=== PATIENT | male | born 1955 | race Caucasian/White ===

== ENCOUNTER 2016-11-14 09:25 | Emergency (ER) | payer OTHER ==
[2016-11-14 09:39] VITALS: BMI 27.4
[2016-11-14 09:49] VITALS: TEMP 98.3
[2016-11-14] MEDS ORDERED: Sodium Chloride 0.9% 1,000 ML IV ONE (10:06)
[2016-11-14] MEDS ORDERED: Sodium Chloride 0.9% 1,000 ML ONE (10:20)
[2016-11-14 10:28] LABS: BASO # 0.1 K/uL (0.0-0.2); BASO % 0.9 % (0.0-2.0); HEMATOCRIT 41.1 % (35.0-51.0); LYMPH # 0.8 K/uL (1.0-4.3); LYMPH % 8.4 % (20.0-40.0); MEAN CELL VOLUME 90.9 fL (80.0-94.0); MEAN CORPUSCULAR HEMOGLOBIN 30.2 pg (27.0-31.0); MEAN CORPUSCULAR HGB CONC 33.2 g/dL (33.0-37.0); MEAN PLATELET VOLUME 8.6 fL (7.2-11.7); MONO # 0.2 K/uL (0.0-0.8); MONO % 2.3 % (0.0-10.0); NRBC % 0.1 % (0.0-2.0); PLATELET COUNT 271 K/uL (130-400); RED CELL DISTRIBUTION WIDTH 14.2 % (11.5-14.5); WHITE BLOOD COUNT 9.9 K/uL (4.8-10.8)
[2016-11-14 10:37] LABS: CHLORIDE 100 mmol/L (98-107); POTASSIUM 3.7 mmol/L (3.6-5.2); SODIUM 139 mmol/L (132-148)
[2016-11-14 10:40] LABS: ALB/GLOB RATIO 1.8 (1.0-2.1); ALKALINE PHOSPHATASE 42 U/L (38-126); ALT/SGPT 42 U/L (21-72); AST/SGOT 31 U/L (17-59); BILIRUBIN,TOTAL 2.6 mg/dL (0.2-1.3); BLOOD UREA NITROGEN 16 mg/dL (9-20); CALCIUM 9.6 mg/dl (8.6-10.4); CARBON DIOXIDE 25 mmol/L (22-30); GFR AFRICAN-AMERICAN > 60; GLUCOSE,RANDOM 151 mg/dL (75-110); TOTAL PROTEIN 8.2 g/dL (6.3-8.3)
--- NOTE | 2016-11-14 11:32 | C.PDOC ---
History Of Present Illness 61-year-old male BIBA for evaluation of nausea, associated with non-bloody/non- bilious vomiting and light headedness that started yesterday. Patient was given an "unknown pill" by friend prior to onset of symptoms. Patient notes that he was previously on methadone, but has not used it in one month. Patient denies chest pain, shortness of breath, abdominal pain, palpitations, headache, dizziness. Time Seen by Provider: 11/14/16 09:37 Chief Complaint (Nursing): Dizziness/Lightheaded History Per: Patient History/Exam Limitations: no limitations Onset/Duration Of Symptoms: Days Severity: Mild Past Medical History Reviewed: Historical Data, Nursing Documentation, Vital Signs Vital Signs: Last Vital Signs Temp 98.3 F 11/14/16 09:39 Pulse 67 11/14/16 13:05 Resp 18 11/14/16 13:05 BP 166/81 H 11/14/16 13:05 Pulse Ox 96 11/18/16 19:00 - Medical History PMH: Asthma, HTN, Hypercholesterolemia Surgical History: CABG (2007), Pacemaker (2013) - [facility] Procedures CONTINUOUS INVASIVE MECHANICAL VENTILATION <96 CONSEC HRS (07/04/13) CORONAR ARTERIOGR-2 CATH (07/08/13) INSERT ENDOTRACHEAL TUBE (07/04/13) LEFT HEART CARDIAC CATH (07/08/13) LT HEART ANGIOCARDIOGRAM (07/08/13) Family History: States: No Known Family Hx - Social History Hx Alcohol Use: No Hx Substance Use: No - Immunization History Hx Tetanus Toxoid Vaccination: No Hx Influenza Vaccination: Yes Hx Pneumococcal Vaccination: No Review Of Systems Except As Marked, All Systems Reviewed And Found Negative. Constitutional: Negative for: Fever, Chills Cardiovascular: Negative for: Chest Pain, Palpitations Respiratory: Negative for: Cough, Shortness of Breath Gastrointestinal: Positive for: Nausea, Vomiting. Negative for: Abdominal Pain , Diarrhea Genitourinary: Negative for: Dysuria, Hematuria Musculoskeletal: Negative for: Back Pain Skin: Negative for: Rash Neurological: Positive for: Dizziness. Negative for: Weakness, Numbness Physical Exam - Physical Exam Appears: Well, Non-toxic, No Acute Distress Skin: Warm, Dry, No Rash Head: Normacephalic Eye(s): bilateral: Normal Inspection Oral Mucosa: Moist Cardiovascular: Rhythm Regular Respiratory: Normal Breath Sounds, No Rales, No Rhonchi, No Wheezing Gastrointestinal/Abdominal: Normal Exam, Bowel Sounds, Soft, No Tenderness Neurological/Psych: Oriented x3 ED Course And Treatment - Laboratory Results Result Diagrams: 11/14/16 10:24 11/14/16 10:24 ECG: Interpreted By Me, Viewed By Me (ventricular paced 69 bpm, left axis deivation, no acute St/T wave changes) ECG Rhythm: V Paced ECG Interpretation: No Acute Changes Rate From EC (bpm) O2 Sat by Pulse Oximetry: 96 (RA) Pulse Ox Interpretation: Normal Progress Note: Blood work, EKG, UA, UDS ordered and reviewed. Patient given IV NS bolus. Reevaluation Time: 13:00 Reassessment Condition: Improved (On reassessment, patient is resting comfortably, has no pain, nausea, dizziness. Blood work shows mild elevation in T bili, otherwise was unremarkable. UA (+) for benzos only. On exam, abdomen is soft and nontender. Patient discharged home with Rx for zofran ODT, and was instructed to follow up with PMD in 1-2 days. He understands he should return to ED if symptoms worsen/return.) Disposition Counseled Patient/Family Regarding: Studies Performed, Diagnosis, Need For Followup, Rx Given - Disposition Referrals: Yayo Norris MD [Staff Provider] - Disposition: HOME/ ROUTINE Disposition Time: 13:05 Condition: STABLE Additional Instructions: SEGUIMIENTO CON [place] MDICO EN 1-2 COLLINS USE LOS MEDICAMENTOS QUE NECESITAN PARA NAUSEA BEBIDA DE FLUIDOS BISHNU DEVUELVA A ER SI LOS SNTOMAS EMPEORARAN Prescriptions: Ondansetron [Zofran Odt] 4 mg PO Q8 PRN #10 odt PRN Reason: Nausea/Vomiting Instructions: Acute Nausea and Vomiting (ED) Print Language: GREEK - POA Present On Arrival: None - Clinical Impression Clinical Impression: Nausea and vomiting, Medication side effect - Scribe Statement The provider has reviewed the documentation as recorded by the Scribramez Funes All medical record entries made by the Scribe were at my direction and personally dictated by me. I have reviewed the chart and agree that the record accurately reflects my personal performance of the history, physical exam, medical decision making, and the department course for this patient. I have also personally directed, reviewed, and agree with the discharge instructions and disposition.
[2016-11-14 11:43] LABS: REACTIVE LYMPHOCYTES 1 % (0-0); TOTAL CELLS COUNTED 100
[2016-11-14 11:44] LABS: NEUTROPHIL 90 % (50-75)
[2016-11-14 13:09] VITALS: BP 166/81; PULSE 67; RESP 18
[2016-11-14 13:11] LABS: RBC URINE 31 /hpf (0-3); URINE BACTERIA RARE (<OCC); URINE BILIRUBIN NEGATIVE (NEGATIVE); URINE BLOOD 2+ (NEGATIVE); URINE COLOR Yellow (YELLOW); URINE GLUCOSE (UA) NORMAL (Normal); URINE KETONE TRACE mg/dL (NEGATIVE); URINE LEUKOCYTE ESTERASE NEG Leu/uL (Negative); URINE PROTEIN 1+ mg/dL (NEGATIVE); URINE UROBILINOGEN NORMAL mg/dL (0.2-1.0); WBC URINE 2 /hpf (0-5)
[2016-11-18 18:57] VITALS: O2SAT 96
--- NOTE | 2016-11-18 19:17 | CARD ---
APPROVED REPORT EKG Measurement Heart [id number] <Conclusion> Alternating Atrial-sensed/paced and ventricular-paced rhythm with occasional premature ventricular complexes Abnormal ECG
== END 2016-11-14 13:32 | disposition home or self-care (01) ==
LOC: C.ER 09:25
DX: T50.901A Poisoning by unspecified drugs, medicaments and biological substances, accidental (unintentional), initial encounter (principal); R11.2 Nausea with vomiting, unspecified; R42 Dizziness and giddiness; Y92.9 Unspecified place or not applicable
CPT/HCPCS: 80053; 80324; 80345; 80346; 80349; 80353; 80358; 80361; 81001; 83690; 83992; 85025; 96360; 99285; J7040

== ENCOUNTER 2017-04-06 09:24 | Inpatient (IN) | payer OTHER ==
[2017-04-06 09:24] VITALS: BMI 27.4
--- NOTE | 2017-04-06 09:59 | C.PDOC ---
History Of Present Illness 61 y/o male presents to emergency department with complaint of left sided chest pain since last night, described as "feeling like electrical currents running across my chest". Patient reports past medical history of 2 stents, CAD. Patient also describes pain as constant. Denies fever, chills, diaphoresis, pleuritic pain, nausea, vomiting, cough, SOB, or other associated symptoms. Notes he has not taken aspirin today as he has run out. Time Seen by Provider: 04/06/17 09:43 Chief Complaint (Nursing): Chest Pain History Per: Patient History/Exam Limitations: no limitations Current Symptoms Are (Timing): Still Present Associated Symptoms: denies: Nausea, Diaphoresis Recent travel outside of the [place]: No Past Medical History Reviewed: Historical Data, Nursing Documentation, Vital Signs Vital Signs: Last Vital Signs Temp 98 F 04/06/17 17:00 Pulse 64 04/06/17 17:52 Resp 18 04/06/17 17:52 BP 132/67 04/06/17 17:52 Pulse Ox 99 04/06/17 17:52 - Medical History PMH: Asthma, CAD, HTN, Hypercholesterolemia Surgical History: CABG (2007), Pacemaker (2013) - [facility] Procedures CONTINUOUS INVASIVE MECHANICAL VENTILATION <96 CONSEC HRS (07/04/13) CORONAR ARTERIOGR-2 CATH (07/08/13) INSERT ENDOTRACHEAL TUBE (07/04/13) LEFT HEART CARDIAC CATH (07/08/13) LT HEART ANGIOCARDIOGRAM (07/08/13) Family History: States: Unknown Family Hx - Social History Hx Alcohol Use: No Hx Substance Use: No - Immunization History Hx Tetanus Toxoid Vaccination: No Hx Influenza Vaccination: Yes Hx Pneumococcal Vaccination: No Review Of Systems Except As Marked, All Systems Reviewed And Found Negative. Constitutional: Negative for: Fever, Chills Cardiovascular: Positive for: Chest Pain. Negative for: Palpitations Respiratory: Negative for: Cough, Shortness of Breath, Wheezing Gastrointestinal: Negative for: Nausea, Vomiting, Abdominal Pain Skin: Negative for: Rash Neurological: Negative for: Headache, Dizziness Physical Exam - Physical Exam Appears: Non-toxic, No Acute Distress Skin: Normal Color, Warm, Dry Head: Atraumatic, Normacephalic Oral Mucosa: Moist Neck: Normal ROM, Supple Chest: Symmetrical, Other (healed scar left chest) Cardiovascular: Rhythm Regular Respiratory: Normal Breath Sounds, No Rales, No Rhonchi, No Wheezing Gastrointestinal/Abdominal: Soft, No Tenderness, No Guarding, No Rebound Back: Normal Inspection Extremity: Normal ROM, Capillary Refill (< 2 sec. ) Extremity: Bilateral: Normal Color And Temperature Neurological/Psych: Oriented x3, Normal Speech, Normal Cognition ED Course And Treatment - Laboratory Results Result Diagrams: 04/06/17 10:09 04/06/17 10:09 O2 Sat by Pulse Oximetry: 95 (RA) Pulse Ox Interpretation: Normal - Other Rad Chest XR X-Ray: Viewed By Me, Read By Radiologist Interpretation: IMPRESSION: Mild central vascular congestion. Left-sided pacemaker. Borderline cardiomegaly. Progress Note: EKG, CXR, labs ordered and reviewed. Case discussed with Dr. Navarrete who agrees upon plan of admission. Medical Decision Making Medical Decision Making: Case was discussed with Dr. Griffin who states to admit the patient to the hospitalist. The case was discussed with Dr. Navarrete (hospitalist) who agrees to admit the patient to his service. Disposition - Disposition Disposition: HOSPITALIZED Disposition Time: 12:00 Condition: FAIR - Clinical Impression Clinical Impression: Chest pain, NSTEMI (non-ST elevated myocardial infarction) - PA / CHECK AIRMAN / Resident Statement MD/DO has reviewed & agrees with the documentation as recorded. - Scribe Statement The provider has reviewed the documentation as recorded by the Scribramez Mina All medical record entries made by the Vikram were at my direction and personally dictated by me. I have reviewed the chart and agree that the record accurately reflects my personal performance of the history, physical exam, medical decision making, and the department course for this patient. I have also personally directed, reviewed, and agree with the discharge instructions and disposition.
[2017-04-06 10:16] LABS: BASO # 0.1 K/uL (0.0-0.2); BASO % 0.8 % (0.0-2.0); EOS % 0.1 % (0.0-4.0); HEMATOCRIT 39.7 % (35.0-51.0); LYMPH # 0.5 K/uL (1.0-4.3); LYMPH % 7.4 % (20.0-40.0); MEAN CELL VOLUME 91.2 fL (80.0-94.0); MEAN PLATELET VOLUME 8.6 fL (7.2-11.7); MONO # 0.2 K/uL (0.0-0.8); MONO % 3.4 % (0.0-10.0); PLATELET COUNT 242 K/uL (130-400); RED CELL DISTRIBUTION WIDTH 13.9 % (11.5-14.5); WHITE BLOOD COUNT 7.3 K/uL (4.8-10.8)
[2017-04-06 10:23] LABS: CHLORIDE 101 mmol/L (98-107); POTASSIUM 4.1 mmol/L (3.6-5.2); SODIUM 139 mmol/L (132-148)
[2017-04-06 10:26] LABS: ALB/GLOB RATIO 1.3 (1.0-2.1); ALKALINE PHOSPHATASE 56 U/L (38-126); ALT/SGPT 38 U/L (21-72); AST/SGOT 39 U/L (17-59); BILIRUBIN,TOTAL 1.7 mg/dL (0.2-1.3); BLOOD UREA NITROGEN 11 mg/dL (9-20); CARBON DIOXIDE 22 mmol/L (22-30); GFR AFRICAN-AMERICAN > 60; GLUCOSE,RANDOM 134 mg/dL (75-110); TOTAL PROTEIN 7.7 g/dL (6.3-8.3)
[2017-04-06 10:27] LABS: CALCIUM 9.6 mg/dl (8.6-10.4)
[2017-04-06 10:28] LABS: INR 1.2
--- NOTE | 2017-04-06 10:33 | RAD ---
HISTORY: chest pain COMPARISON: Chest x-ray performed 09/15/16 TECHNIQUE: Chest, one view. FINDINGS: LUNGS: Mild central vascular congestion. No focal consolidation. Please note that chest x-ray has limited sensitivity for the detection of pulmonary masses. PLEURA: No significant pleural effusion identified. No definite pneumothorax . CARDIOVASCULAR: Median sternotomy wires with evidence of CABG. Left-sided AICD. Borderline cardiomegaly. Atherosclerotic calcifications of the aorta. OSSEOUS STRUCTURES: No acute osseous abnormality identified. VISUALIZED UPPER ABDOMEN: Unremarkable. OTHER FINDINGS: None. IMPRESSION: Mild central vascular congestion. Left-sided pacemaker. Borderline cardiomegaly.
[2017-04-06 10:40] LABS: BASOPHIL 1 % (0-2); NEUTROPHIL 87 % (50-75); TOTAL CELLS COUNTED 100
[2017-04-06] MEDS ORDERED: Enoxaparin 40 mg Syringe SC STA (11:30)
[2017-04-06] MEDS ORDERED: Enoxaparin 80 mg Syringe ONE (11:53)
[2017-04-06] MEDS ORDERED: Nitroglycerin 2% Ointment Foilpak UD TOP STA (12:05)
[2017-04-06] MEDS ORDERED: Nitroglycerin 2% Ointment Foilpak UD TOP ONE (13:11)
--- NOTE | 2017-04-06 14:16 | CP.PCM.HP ---
<Lyle Estrada - Last Filed: 04/06/17 17:40> History of Present Illness - History of Present Illness History of Present Illness: PGY1 Medicine Note for Dr. Navarrete 61 year old male with PMHx of CABG (2008), CAD s/p 2x stent placement ( 2013), permanent pacemaker/AICD (2013), asthma, HTN, HLD. Patient presents to ED complaining of intermittent left sided chest pain starting yesterday at 11 PM while watching TV at home. The pain is described as "shocking" and radiated to the right side of the chest, pain rated 7/10. Associated symptoms include one episode of nausea and vomiting. Denies fever, sweats, SOB, dizziness, numbness or tingling. Patient states he took an Ambien to sleep, which is normal for him. The same chest pain returned this morning while at rest which prompted him to come to ED. Patient currently has no pain in ED. ED Course: Troponin 1.16, pro-BNP 8170, CXR shows mild central vascular congestion with borderline cardiomegaly. 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 Medications: - ASA 81 mg PO daily (not in current home meds list) - Clopidogrel 75 mg PO daily - Carvedilol 6.25 mg PO q12 - Enalapril 20 mg PO daily - Atorvastatin 40 mg PO qhs - Zolpidem for sleep (not in current home meds list) Present on Admission - Present on Admission Any Indicators Present on Admission: No Review of Systems - Constitutional Constitutional: absent: Chills, Excessive Sweating, Fever, Headache, Lethargy, Weakness - EENT Eyes: absent: Blurred Vision, Change in Vision, Loss of Peripheral Vision Nose/Mouth/Throat: absent: Epistaxis, Nasal Congestion, Hoarsness, Sore Throat - Cardiovascular Cardiovascular: Chest Pain ("shock" - like pain), Chest Pain at Rest (occurred while watching tv), Radiating Pain (left chest to the right chest). absent: Diaphoresis, Dyspnea, Pain Radiating to Arm/Neck/Jaw, Leg Edema, Syncope - Gastrointestinal Gastrointestinal: Nausea (once), Vomiting (once). absent: Abdominal Pain - Musculoskeletal Musculoskeletal: absent: Abnormal Gait, Back Pain, Muscle Weakness, Numbness, Tingling - Integumentary Integumentary: absent: Erythema, Rash - Neurological Neurological: absent: Dizziness, Numbness, Headaches, Syncope, Tingling, Vertigo , Weakness - Psychiatric Psychiatric: absent: Anxiety, Change in Appetite, Depression - Endocrine Endocrine: absent: Fatigue, Palpitations, Polydipsia, Polyphagia Past Patient History - Infectious Disease Hx of Infectious Diseases: None - Past Medical History & Family History Past Medical History?: Yes - Past Social History Smoking Status: Former Smoker - CARDIAC Hx Hypercholesterolemia: Yes Hx Hypertension: Yes Hx Pacemaker: Yes (2013) - PULMONARY Hx Asthma: Yes - NEUROLOGICAL Hx Neurological Disorder: No - HEENT Hx HEENT Problems: No - RENAL Hx Chronic Kidney Disease: No - ENDOCRINE/METABOLIC Hx Endocrine Disorders: No - HEMATOLOGICAL/ONCOLOGICAL Hx Blood Disorders: No - INTEGUMENTARY Hx Dermatological Problems: No - MUSCULOSKELETAL/RHEUMATOLOGICAL Hx Musculoskeletal Disorders: No - GASTROINTESTINAL Hx Gastrointestinal Disorders: No - GENITOURINARY/GYNECOLOGICAL Hx Genitourinary Disorders: No - PSYCHIATRIC Hx Substance Use: No - SURGICAL HISTORY Hx Coronary Artery Bypass Graft: Yes (2007) - ANESTHESIA Hx Anesthesia: Yes Hx Anesthesia Reactions: No Hx Malignant Hyperthermia: No Meds Allergies/Adverse Reactions: Allergies Allergy/AdvReac Type Severity Reaction Status Date / Time No Known Allergies Allergy Verified 04/06/17 09:40 Physical Exam - Constitutional Appears: Well, Non-toxic, No Acute Distress - Head Exam Head Exam: ATRAUMATIC, NORMOCEPHALIC - Eye Exam Eye Exam: EOMI, Normal appearance - ENT Exam ENT Exam: Mucous Membranes Moist - Respiratory Exam Respiratory Exam: Clear to Auscultation Bilateral, NORMAL BREATHING PATTERN. absent: Accessory Muscle Use, Rales, Rhonchi, Wheezes, Respiratory Distress - Cardiovascular Exam Cardiovascular Exam: REGULAR RHYTHM, +S1, +S2 - GI/Abdominal Exam GI & Abdominal Exam: Normal Bowel Sounds, Soft. absent: Distended, Guarding, Rigid - Extremities Exam Extremities exam: Positive for: normal inspection. Negative for: calf tenderness, joint swelling, pedal edema, tenderness - Back Exam Back exam: absent: CVA tenderness (L), CVA tenderness (R), paraspinal tenderness , tenderness, vertebral tenderness - Neurological Exam Neurological exam: Alert, CN II-XII Intact, Oriented x3 - Psychiatric Exam Psychiatric exam: Normal Affect, Normal Mood - Skin Skin Exam: Dry, Intact, Normal Color, Warm Results - Vital Signs Recent Vital Signs: Last Vital Signs Temp 98.5 F 04/06/17 09:29 Pulse 70 04/06/17 09:35 Resp 96 H 04/06/17 09:35 BP 123/66 04/06/17 09:29 Pulse Ox 95 04/06/17 10:33 - Labs Result Diagrams: 04/06/17 10:09 04/06/17 10:09 Labs: Laboratory Results - last 24 hr 04/06/17 04/06/17 04/06/17 10:09 10:09 10:09 WBC 7.3 RBC 4.36 L Hgb 13.5 Hct 39.7 MCV 91.2 MCH 31.0 MCHC 34.0 RDW 13.9 Plt Count 242 MPV 8.6 Neut % (Auto) 88.3 H Lymph % (Auto) 7.4 L Dolores % (Auto) 3.4 Eos % (Auto) 0.1 Baso % (Auto) 0.8 Neut # 6.4 Lymph # 0.5 L Dolores # 0.2 Eos # 0.0 Baso # 0.1 Neutrophils % (Manual) 87 H Band Neutrophils % 1 Lymphocytes % (Manual) 7 L Monocytes % (Manual) 4 Basophils % (Manual) 1 Platelet Estimate Normal Ovalocytes Slight PT 13.2 H INR 1.2 APTT 19 L Sodium 139 Potassium 4.1 Chloride 101 Carbon Dioxide 22 Anion Gap 21 H BUN 11 Creatinine 0.7 L Est GFR ( Amer) > 60 Est GFR (Non-Af Amer) > 60 Random Glucose 134 H Calcium 9.6 Total Bilirubin 1.7 H AST 39 ALT 38 Alkaline Phosphatase 56 Troponin I 1.1600 H* NT-Pro-B Natriuret Pep 8170 H Total Protein 7.7 Albumin 4.3 Globulin 3.4 Albumin/Globulin Ratio 1.3 Assessment & Plan - Assessment and Plan (Free Text) Assessment: NSTEMI Cardiology Consulted, Dr. Rucker EKG - no changes from prior EKG Troponin - elevated 1.1600, repeat 4.1700, f/u third trop CXR 04/06/17- Mild central vascular congestion. Left-sided pacemaker. Borderline cardiomegaly. Aspirin 81mg PO daily Carvedilol 6.25mg PO Q12H Plavix 75mg PO daily Enalapril Maleate 20mg PO daily Lovenox 70mg SC Q12H Morphine 2mg IVP Q4H PRN Nitro Paste 1/2 inch Q12H PRN Crestor 40mg PO HS Critical Care Consult, Dr. Orr Patient started complaining of the return of chest pain. Repeat trop of 4.1700 - -> NSTEMI Started on Nitro Drip 50mg in 250mL IV starting at 5mcg/min Plavix 300mg STAT HTN Enalapril Maleate 20mg PO daily Carvedilol 6.25mg PO Q12H HLD Crestor 40mg PO HS Prophylactic Care DVT ppx - Lovenox 70mg SC Q12H GI ppx - Protonix 40mg IVP daily Case discussed with Dr. Rosalba Estrada PGY1 <Bob Navarrete H - Last Filed: 04/06/17 18:04> Results - Vital Signs Recent Vital Signs: Last Vital Signs Temp 98 F 04/06/17 17:00 Pulse 80 04/06/17 17:00 Resp 16 04/06/17 17:00 BP 121/64 04/06/17 17:00 Pulse Ox 98 04/06/17 17:00 - Labs Result Diagrams: 04/06/17 10:04/06/17 10:09 Labs: Laboratory Results - last 24 hr 04/06/17 04/06/17 04/06/17 10:09 10:09 10:09 WBC 7.3 RBC 4.36 L Hgb 13.5 Hct 39.7 MCV 91.2 MCH 31.0 MCHC 34.0 RDW 13.9 Plt Count 242 MPV 8.6 Neut % (Auto) 88.3 H Lymph % (Auto) 7.4 L Dolores % (Auto) 3.4 Eos % (Auto) 0.1 Baso % (Auto) 0.8 Neut # 6.4 Lymph # 0.5 L Dolores # 0.2 Eos # 0.0 Baso # 0.1 Neutrophils % (Manual) 87 H Band Neutrophils % 1 Lymphocytes % (Manual) 7 L Monocytes % (Manual) 4 Basophils % (Manual) 1 Platelet Estimate Normal Ovalocytes Slight PT 13.2 H INR 1.2 APTT 19 L Sodium 139 Potassium 4.1 Chloride 101 Carbon Dioxide 22 Anion Gap 21 H BUN 11 Creatinine 0.7 L Est GFR ( Amer) > 60 Est GFR (Non-Af Amer) > 60 Random Glucose 134 H Calcium 9.6 Total Bilirubin 1.7 H AST 39 ALT 38 Alkaline Phosphatase 56 Total Creatine Kinase CK-MB (Mass) Troponin I 1.1600 H* Troponin I, Quant NT-Pro-B Natriuret Pep 8170 H Total Protein 7.7 Albumin 4.3 Globulin 3.4 Albumin/Globulin Ratio 1.3 04/06/17 16:32 WBC RBC Hgb Hct MCV MCH MCHC RDW Plt Count MPV Neut % (Auto) Lymph % (Auto) Dolores % (Auto) Eos % (Auto) Baso % (Auto) Neut # Lymph # Dolores # Eos # Baso # Neutrophils % (Manual) Band Neutrophils % Lymphocytes % (Manual) Monocytes % (Manual) Basophils % (Manual) Platelet Estimate Ovalocytes PT INR APTT Sodium Potassium Chloride Carbon Dioxide Anion Gap BUN Creatinine Est GFR ( Amer) Est GFR (Non-Af Amer) Random Glucose Calcium Total Bilirubin AST ALT Alkaline Phosphatase Total Creatine Kinase 226 H CK-MB (Mass) 13.0 H Troponin I Troponin I, Quant 4.1700 H* NT-Pro-B Natriuret Pep Total Protein Albumin Globulin Albumin/Globulin Ratio Attending/Attestation - Attestation I have personally seen and examined this patient.: Yes I have fully participated in the care of the patient.: Yes I have reviewed all pertinent clinical information: Yes Notes (Text): 04/06/17 18:00 Medical Attending: Patient was seen earlier in the morning by me and the medical communication specialist. At that time he was not having chest pain and not short of breath. He was already given Lovenox 1mg/kg by ER earlier in the morning since he did have borderline elevated troponins. He was not in any acute distress when we saw the patient. Later in the day I was notified that the second troponin was positive 4.1 and we came and saw the patient again. The patient at this pointed reported that the chest pain had returned. His HR and BP were stable when we saw him again. Because of the increasing troponins as well as return of the chest pain we started a nitroglycerin ggt @ 5mcg as well as ICU consult. Very likley the troponins will continue to climb further overnight. Also Plavix 300 x 1 was given as well. There is medical history of CAD and from what I understand a two vessel CABG. The patient also has what appears to be a pacemaker as well. thank you Bob Navarrete
[2017-04-06] MEDS ORDERED: Nitroglycerin 2% Ointment Foilpak UD TOP PRN (14:52)
[2017-04-06] MEDS: Nitroglycerin 50mg in D5W 50 MG/250 ML BOTTLE IV SCH (17:35)
--- NOTE | 2017-04-06 18:31 | CP.PCM.CON ---
History of Present Illness - History of Present Illness History of Present Illness: ICU Consult Note: HPI: As per medicine: 61 year old male with PMHx of CABG (2008), CAD s/p 2x stent placement ( 2013), permanent pacemaker/AICD (2013), asthma, HTN, HLD. Patient presents to ED complaining of intermittent left sided chest pain starting yesterday at 11 PM while watching TV at home. The pain is described as "shocking" and radiated to the right side of the chest, pain rated 7/10. Associated symptoms include one episode of nausea and vomiting. Denies fever, sweats, SOB, dizziness, numbness or tingling. Patient states he took an Ambien to sleep, which is normal for him. The same chest pain returned this morning while at rest which prompted him to come to ED. Patient currently has no pain in ED. 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 absent: Diaphoresis, Dyspnea, Edema, Lightheadedness, Palpitations, Syncope - Respiratory Respiratory: absent: Cough, Dyspnea, Dyspnea on Exertion - Gastrointestinal Gastrointestinal: absent: Abdominal Pain, Cramping, Nausea, Vomiting - Musculoskeletal Musculoskeletal: absent: Numbness, Tingling - Neurological Neurological: absent: Dizziness, Syncope, Tingling, Weakness - Endocrine Endocrine: absent: Fatigue, Palpitations Past Patient History - Infectious Disease Hx of Infectious Diseases: None - Past Medical History & Family History Past Medical History?: Yes - Past Social History Smoking Status: Former Smoker - CARDIAC Hx Hypercholesterolemia: Yes Hx Hypertension: Yes Hx Pacemaker: Yes (2013) - PULMONARY Hx Asthma: Yes - NEUROLOGICAL Hx Neurological Disorder: No - HEENT Hx HEENT Problems: No - RENAL Hx Chronic Kidney Disease: No - ENDOCRINE/METABOLIC Hx Endocrine Disorders: No - HEMATOLOGICAL/ONCOLOGICAL Hx Blood Disorders: No - INTEGUMENTARY Hx Dermatological Problems: No - MUSCULOSKELETAL/RHEUMATOLOGICAL Hx Musculoskeletal Disorders: No - GASTROINTESTINAL Hx Gastrointestinal Disorders: No - GENITOURINARY/GYNECOLOGICAL Hx Genitourinary Disorders: No - PSYCHIATRIC Hx Substance Use: No - SURGICAL HISTORY Hx Coronary Artery Bypass Graft: Yes (2007) - ANESTHESIA Hx Anesthesia: Yes Hx Anesthesia Reactions: No Hx Malignant Hyperthermia: No Meds Allergies/Adverse Reactions: Allergies Allergy/AdvReac Type Severity Reaction Status Date / Time No Known Allergies Allergy Verified 04/06/17 09:40 - Medications Medications: Current Medications Aspirin (Aspirin Chewable) 81 mg PO DAILY [facility] Carvedilol (Coreg) 6.25 mg PO Q12H [facility] Last Admin: 04/06/17 15:30 Dose: 6.25 mg Clopidogrel Bisulfate (Plavix) 75 mg PO DAILY [facility] Enalapril Maleate (Vasotec) 20 mg PO DAILY [facility] Enoxaparin Sodium (Lovenox) 70 mg SC Q12 [facility] Nitroglycerin/Dextrose (Nitroglycerin 50 Mg/250 Ml D5w) 50 mg in 250 mls @ 1.5 mls/hr IV .Q24H [facility]; 5 MCG/MIN PRN Reason: Protocol Last Admin: 04/06/17 17:35 Dose: 5 mcg/min, 1.5 mls/hr Morphine Sulfate (Morphine) 2 mg IVP Q4 PRN PRN Reason: Pain, moderate (4-7) Nitroglycerin (Nitro-Bid 2% Oint) 1 ea TOP Q12 PRN PRN Reason: chest pain Pantoprazole Sodium (Protonix Inj) 40 mg IVP DAILY [facility] Rosuvastatin Calcium (Crestor) 40 mg PO HS [facility] Physical Exam - Head Exam Head Exam: ATRAUMATIC, NORMAL INSPECTION - Eye Exam Eye Exam: EOMI, Normal appearance - Respiratory Exam Respiratory Exam: Clear to Auscultation Bilateral, NORMAL BREATHING PATTERN - Cardiovascular Exam Cardiovascular Exam: REGULAR RHYTHM, +S1, +S2 - GI/Abdominal Exam GI & Abdominal Exam: Normal Bowel Sounds, Soft - Extremities Exam Extremities exam: Positive for: normal capillary refill, normal inspection. Negative for: calf tenderness, tenderness - Neurological Exam Neurological exam: Alert, Oriented x3 - Psychiatric Exam Psychiatric exam: Normal Affect, Normal Mood - Skin Skin Exam: Normal Color, Warm Results - Vital Signs Recent Vital Signs: Last Vital Signs Temp 98 F 10/02/17 17:00 Pulse 64 04/06/17 17:52 Resp 18 04/06/17 17:52 BP 132/67 04/06/17 17:52 Pulse Ox 95 04/06/17 18:22 - Labs Result Diagrams: 04/06/17 10:09 04/06/17 10:09 Labs: Laboratory Results - last 24 hr 04/06/17 04/06/17 04/06/17 10:09 10:09 10:09 WBC 7.3 RBC 4.36 L Hgb 13.5 Hct 39.7 MCV 91.2 MCH 31.0 MCHC 34.0 RDW 13.9 Plt Count 242 MPV 8.6 Neut % (Auto) 88.3 H Lymph % (Auto) 7.4 L [place] % (Auto) 3.4 Eos % (Auto) 0.1 Baso % (Auto) 0.8 Neut # 6.4 Lymph # 0.5 L [place] # 0.2 Eos # 0.0 Baso # 0.1 Neutrophils % (Manual) 87 H Band Neutrophils % 1 Lymphocytes % (Manual) 7 L Monocytes % (Manual) 4 Basophils % (Manual) 1 Platelet Estimate Normal Ovalocytes Slight PT 13.2 H INR 1.2 APTT 19 L Sodium 139 Potassium 4.1 Chloride 101 Carbon Dioxide 22 Anion Gap 21 H BUN 11 Creatinine 0.7 L Est GFR ( Amer) > 60 Est GFR (Non-Af Amer) > 60 Random Glucose 134 H Calcium 9.6 Total Bilirubin 1.7 H AST 39 ALT 38 Alkaline Phosphatase 56 Total Creatine Kinase CK-MB (Mass) Troponin I 1.1600 H* Troponin I, Quant NT-Pro-B Natriuret Pep 8170 H Total Protein 7.7 Albumin 4.3 Globulin 3.4 Albumin/Globulin Ratio 1.3 04/06/17 16:32 WBC RBC Hgb Hct MCV MCH MCHC RDW Plt Count MPV Neut % (Auto) Lymph % (Auto) [place] % (Auto) Eos % (Auto) Baso % (Auto) Neut # Lymph # [place] # Eos # Baso # Neutrophils % (Manual) Band Neutrophils % Lymphocytes % (Manual) Monocytes % (Manual) Basophils % (Manual) Platelet Estimate Ovalocytes PT INR APTT Sodium Potassium Chloride Carbon Dioxide Anion Gap BUN Creatinine Est GFR ( Amer) Est GFR (Non-Af Amer) Random Glucose Calcium Total Bilirubin AST ALT Alkaline Phosphatase Total Creatine Kinase 226 H CK-MB (Mass) 13.0 H Troponin I Troponin I, Quant 4.1700 H* NT-Pro-B Natriuret Pep Total Protein Albumin Globulin Albumin/Globulin Ratio Assessment & Plan - Assessment and Plan (Free Text) Assessment: 61 year old male with past medical history PMHx of CABG (2008), asthma, HTN, HLD and insomnia who presents with complaints of left-sided chest pain with elevated troponins (1.1600, 4.1700) Plan: Cardio: NSTEMI with elevated Tropnins, Hx of CAD, HTN AND HLD Cardiology Consult: Dr. Rucker on board--> Help appreciated * Plans for cardiac catherization on 04/08/17 Medications: * Aspirin 81mg PO daily * Coreg 6.25mg PO Q12H * Plavix 300mg PO daily * Nitroglycerin 1 ea top q12 prn * Crestor 40mg PO HS * Vasotec 20mg PO daily * Morphine 2mg IV Q4 prn for pain control F/u echocardiogram Prophylaxis: DVT: Lovenox 70mg SC q12h GI: Protonix 40mg PO daily
[2017-04-06] MEDS: Enoxaparin 80 mg Syringe SC SCH (22:00)
--- NOTE | 2017-04-06 22:27 | CP.PCM.CON ---
History of Present Illness - History of Present Illness History of Present Illness: Patient seen and evaluated Admitted with Non STEMI Continue ASA, Plavix, Statins, Lovenox and B blockers for now Check ECHO Cardiac Cath Thursday 61 year old male with PMHx of CABG (2008), CAD s/p 2x stent placement ( 2013), permanent pacemaker/AICD (2013), asthma, HTN, HLD. Patient presents to ED complaining of intermittent left sided chest pain starting yesterday at 11 PM while watching TV at home. The pain is described as "shocking" and radiated to the right side of the chest, pain rated 7/10. Associated symptoms include one episode of nausea and vomiting. Denies fever, sweats, SOB, dizziness, numbness or tingling. Patient states he took an Ambien to sleep, which is normal for him. The same chest pain returned this morning while at rest which prompted him to come to ED. Patient currently has no pain in ED. ED Course: Troponin 1.16, pro-BNP 8170, CXR shows mild central vascular congestion with borderline cardiomegaly. 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 Medications: - ASA 81 mg PO daily (not in current home meds list) - Clopidogrel 75 mg PO daily - Carvedilol 6.25 mg PO q12 - Enalapril 20 mg PO daily - Atorvastatin 40 mg PO qhs - Zolpidem for sleep (not in current home meds list) Present on Admission - Present on Admission Any Indicators Present on Admission: No Review of Systems - Constitutional Constitutional: absent: Chills, Excessive Sweating, Fever, Headache, Lethargy, Weakness - EENT Eyes: absent: Blurred Vision, Change in Vision, Loss of Peripheral Vision Nose/Mouth/Throat: absent: Epistaxis, Nasal Congestion, Hoarsness, Sore Throat - Cardiovascular Cardiovascular: Chest Pain ("shock" - like pain), Chest Pain at Rest (occurred while watching tv), Radiating Pain (left chest to the right chest). absent: Diaphoresis, Dyspnea, Pain Radiating to Arm/Neck/Jaw, Leg Edema, Syncope - Gastrointestinal Gastrointestinal: Nausea (once), Vomiting (once). absent: Abdominal Pain - Musculoskeletal Musculoskeletal: absent: Abnormal Gait, Back Pain, Muscle Weakness, Numbness, Tingling - Integumentary Integumentary: absent: Erythema, Rash - Neurological Neurological: absent: Dizziness, Numbness, Headaches, Syncope, Tingling, Vertigo , Weakness - Psychiatric Psychiatric: absent: Anxiety, Change in Appetite, Depression - Endocrine Endocrine: absent: Fatigue, Palpitations, Polydipsia, Polyphagia Meds Allergies/Adverse Reactions: Allergies Allergy/AdvReac Type Severity Reaction Status Date / Time No Known Allergies Allergy Verified 04/06/17 09:40 Physical Exam - Constitutional Appears: Well, Non-toxic, No Acute Distress - Head Exam Head Exam: ATRAUMATIC, NORMOCEPHALIC - Eye Exam Eye Exam: EOMI, Normal appearance - ENT Exam ENT Exam: Mucous Membranes Moist - Respiratory Exam Respiratory Exam: Clear to Auscultation Bilateral, NORMAL BREATHING PATTERN. absent: Accessory Muscle Use, Rales, Rhonchi, Wheezes, Respiratory Distress - Cardiovascular Exam Cardiovascular Exam: REGULAR RHYTHM, +S1, +S2 - GI/Abdominal Exam GI & Abdominal Exam: Normal Bowel Sounds, Soft. absent: Distended, Guarding, Rigid - Extremities Exam Extremities exam: Positive for: normal inspection. Negative for: calf tenderness, joint swelling, pedal edema, tenderness - Back Exam Back exam: absent: CVA tenderness (L), CVA tenderness (R), paraspinal tenderness , tenderness, vertebral tenderness - Neurological Exam Neurological exam: Alert, CN II-XII Intact, Oriented x3 - Psychiatric Exam Psychiatric exam: Normal Affect, Normal Mood - Skin Skin Exam: Dry, Intact, Normal Color, Warm Past Patient History - Infectious Disease Hx of Infectious Diseases: None - Past Medical History & Family History Past Medical History?: Yes - Past Social History Smoking Status: Former Smoker - CARDIAC Hx Hypercholesterolemia: Yes Hx Hypertension: Yes Hx Pacemaker: Yes (2013) - PULMONARY Hx Asthma: Yes - NEUROLOGICAL Hx Neurological Disorder: No - HEENT Hx HEENT Problems: No - RENAL Hx Chronic Kidney Disease: No - ENDOCRINE/METABOLIC Hx Endocrine Disorders: No - HEMATOLOGICAL/ONCOLOGICAL Hx Blood Disorders: No - INTEGUMENTARY Hx Dermatological Problems: No - MUSCULOSKELETAL/RHEUMATOLOGICAL Hx Musculoskeletal Disorders: No - GASTROINTESTINAL Hx Gastrointestinal Disorders: No - GENITOURINARY/GYNECOLOGICAL Hx Genitourinary Disorders: No - PSYCHIATRIC Hx Substance Use: No - SURGICAL HISTORY Hx Coronary Artery Bypass Graft: Yes (2007) - ANESTHESIA Hx Anesthesia: Yes Hx Anesthesia Reactions: No Hx Malignant Hyperthermia: No Meds Allergies/Adverse Reactions: Allergies Allergy/AdvReac Type Severity Reaction Status Date / Time No Known Allergies Allergy Verified 04/06/17 09:40 - Medications Medications: Current Medications Aspirin (Aspirin Chewable) 81 mg PO DAILY [facility] Carvedilol (Coreg) 6.25 mg PO Q12H [facility] Last Admin: 04/06/17 15:30 Dose: 6.25 mg Clopidogrel Bisulfate (Plavix) 75 mg PO DAILY [facility] Enalapril Maleate (Vasotec) 20 mg PO DAILY [facility] Enoxaparin Sodium (Lovenox) 70 mg SC Q12 [facility] Nitroglycerin/Dextrose (Nitroglycerin 50 Mg/250 Ml D5w) 50 mg in 250 mls @ 1.5 mls/hr IV .Q24H [facility]; 5 MCG/MIN PRN Reason: Protocol Last Admin: 04/06/17 17:35 Dose: 5 mcg/min, 1.5 mls/hr Morphine Sulfate (Morphine) 2 mg IVP Q4 PRN PRN Reason: Pain, moderate (4-7) Nitroglycerin (Nitro-Bid 2% Oint) 1 ea TOP Q12 PRN PRN Reason: chest pain Pantoprazole Sodium (Protonix Inj) 40 mg IVP DAILY [facility] Rosuvastatin Calcium (Crestor) 40 mg PO HS [facility] Zolpidem Tartrate (Ambien) 5 mg PO HS PRN PRN Reason: Insomnia Results - Vital Signs Recent Vital Signs: Last Vital Signs Temp 98 F 04/06/17 17:00 Pulse 67 04/06/17 19:39 Resp 12 04/06/17 18:41 BP 134/71 04/06/17 18:41 Pulse Ox 97 04/06/17 18:41 - Labs Result Diagrams: 04/07/17 06:39 04/07/17 06:39 Labs: Laboratory Results - last 24 hr 04/06/17 04/06/17 04/06/17 10:09 10:09 10:09 WBC 7.3 RBC 4.36 L Hgb 13.5 Hct 39.7 MCV 91.2 MCH 31.0 MCHC 34.0 RDW 13.9 Plt Count 242 MPV 8.6 Neut % (Auto) 88.3 H Lymph % (Auto) 7.4 L [place] % (Auto) 3.4 Eos % (Auto) 0.1 Baso % (Auto) 0.8 Neut # 6.4 Lymph # 0.5 L [place] # 0.2 Eos # 0.0 Baso # 0.1 Neutrophils % (Manual) 87 H Band Neutrophils % 1 Lymphocytes % (Manual) 7 L Monocytes % (Manual) 4 Basophils % (Manual) 1 Platelet Estimate Normal Ovalocytes Slight PT 13.2 H INR 1.2 APTT 19 L Sodium 139 Potassium 4.1 Chloride 101 Carbon Dioxide 22 Anion Gap 21 H BUN 11 Creatinine 0.7 L Est GFR ( Amer) > 60 Est GFR (Non-Af Amer) > 60 Random Glucose 134 H Calcium 9.6 Total Bilirubin 1.7 H AST 39 ALT 38 Alkaline Phosphatase 56 Total Creatine Kinase CK-MB (Mass) Troponin I 1.1600 H* Troponin I, Quant NT-Pro-B Natriuret Pep 8170 H Total Protein 7.7 Albumin 4.3 Globulin 3.4 Albumin/Globulin Ratio 1.3 04/06/17 16:32 WBC RBC Hgb Hct MCV MCH MCHC RDW Plt Count MPV Neut % (Auto) Lymph % (Auto) [place] % (Auto) Eos % (Auto) Baso % (Auto) Neut # Lymph # [place] # Eos # Baso # Neutrophils % (Manual) Band Neutrophils % Lymphocytes % (Manual) Monocytes % (Manual) Basophils % (Manual) Platelet Estimate Ovalocytes PT INR APTT Sodium Potassium Chloride Carbon Dioxide Anion Gap BUN Creatinine Est GFR ( Amer) Est GFR (Non-Af Amer) Random Glucose Calcium Total Bilirubin AST ALT Alkaline Phosphatase Total Creatine Kinase 226 H CK-MB (Mass) 13.0 H Troponin I Troponin I, Quant 4.1700 H* NT-Pro-B Natriuret Pep Total Protein Albumin Globulin Albumin/Globulin Ratio Assessment & Plan - Assessment and Plan (Free Text) Assessment: NSTEMI 04/07: The troponins lex to 4.2 and then decreased overnight. He remains on tridil ggt at this moment. He is pending cardiac cath some time tommorrow. His pertient history includes CABG x 2 vessel, pacer, history of HTN EKG - no changes from prior EKG Troponin - elevated 1.1600, repeat 4.1700, f/u third trop CXR 04/06/17- Mild central vascular congestion. Left-sided pacemaker. Borderline cardiomegaly. Aspirin 81mg PO daily Carvedilol 6.25mg PO Q12H Plavix 75mg PO daily Enalapril Maleate 20mg PO daily Lovenox 70mg SC Q12H Morphine 2mg IVP Q4H PRN Nitro Paste 1/2 inch Q12H PRN Crestor 40mg PO HS For Cath Thursday HTN Enalapril Maleate 20mg PO daily Carvedilol 6.25mg PO Q12H [facility] Crestor 40mg PO HS Prophylactic Care DVT ppx - Lovenox 70mg SC Q12H GI ppx - Protonix 40mg IVP daily
[2017-04-07 06:42] LABS: BASO # 0.1 K/uL (0.0-0.2); BASO % 0.9 % (0.0-2.0); EOS # 0.1 K/uL (0.0-0.7); EOS % 0.7 % (0.0-4.0); HEMATOCRIT 39.9 % (35.0-51.0); LYMPH # 1.9 K/uL (1.0-4.3); LYMPH % 24.2 % (20.0-40.0); MEAN CELL VOLUME 90.9 fL (80.0-94.0); MEAN CORPUSCULAR HEMOGLOBIN 31.3 pg (27.0-31.0); MEAN CORPUSCULAR HGB CONC 34.4 g/dL (33.0-37.0); MEAN PLATELET VOLUME 8.6 fL (7.2-11.7); MONO # 0.7 K/uL (0.0-0.8); MONO % 9.4 % (0.0-10.0); RED CELL DISTRIBUTION WIDTH 13.8 % (11.5-14.5); WHITE BLOOD COUNT 7.9 K/uL (4.8-10.8)
[2017-04-07 07:07] LABS: CHLORIDE 97 mmol/L (98-107); SODIUM 137 mmol/L (132-148)
[2017-04-07 07:10] LABS: ALB/GLOB RATIO 1.2 (1.0-2.1); ALKALINE PHOSPHATASE 44 U/L (38-126); ALT/SGPT 30 U/L (21-72); AST/SGOT 75 U/L (17-59); BLOOD UREA NITROGEN 18 mg/dL (9-20); CALCIUM 9.2 mg/dl (8.6-10.4); CARBON DIOXIDE 25 mmol/L (22-30); GFR AFRICAN-AMERICAN > 60; GLUCOSE,RANDOM 120 mg/dL (75-110); TOTAL PROTEIN 8.2 g/dL (6.3-8.3)
[2017-04-07 07:23] LABS: MAGNESIUM 1.7 mg/dL (1.6-2.3); PHOSPHOROUS 2.7 mg/dL (2.5-4.5)
[2017-04-07 08:37] LABS: TROPONIN I 2.22 ng/mL (0.00-0.120)
[2017-04-07] MEDS: Enoxaparin 80 mg Syringe SC SCH ×2 (09:32→21:35)
--- NOTE | 2017-04-07 13:37 | CP.PCM.PN ---
Subjective - Date & Time of Evaluation Date of Evaluation: 04/07/17 Time of Evaluation: 12:00 - Subjective Subjective: Patient was seen and examined by me No acute events noted overnight. He is still on the nitro ggt when I saw him today. He reported overall he felt ok, however added he still has moments of chest pain. Denied shortness of breath, denied abdominal pain, denied headache, denied palpitations. Reported poor appetite. The troponins lex to 4,and 4.1, and then down to 2. 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 From what I understand cardiology is planning on cardiac cath tomorrow. Patient was already aware of this Objective - Vital Signs/Intake and Output Vital Signs (last 24 hours): Temp Pulse Resp BP Pulse Ox 97.8 F 60 10 L 167/85 H 98 04/07/17 12:00 04/07/17 13:15 04/07/17 13:15 04/07/17 12:49 04/07/17 13:15 Intake and Output: 04/07/17 04/07/17 06:59 18:59 Intake Total 228.5 588 Output Total 700 300 Balance -471.5 288 - Medications Medications: Current Medications Aspirin (Aspirin Chewable) 81 mg PO DAILY [facility] Last Admin: 04/07/17 09:33 Dose: 81 mg Carvedilol (Coreg) 6.25 mg PO Q12H [facility] Last Admin: 04/07/17 06:00 Dose: 6.25 mg Clopidogrel Bisulfate (Plavix) 75 mg PO DAILY [facility] Last Admin: 04/07/17 09:32 Dose: 75 mg Enalapril Maleate (Vasotec) 20 mg PO DAILY [facility] Last Admin: 04/07/17 09:34 Dose: 20 mg Enoxaparin Sodium (Lovenox) 70 mg SC Q12 [facility] Last Admin: 04/07/17 09:32 Dose: 70 mg Nitroglycerin/Dextrose (Nitroglycerin 50 Mg/250 Ml D5w) 50 mg in 250 mls @ 1.5 mls/hr IV .Q24H [facility]; 5 MCG/MIN PRN Reason: Protocol Last Titration: 04/07/17 07:58 Dose: 40 mcg/min, 12 mls/hr Morphine Sulfate (Morphine) 2 mg IVP Q4 PRN PRN Reason: Pain, moderate (4-7) Last Admin: 04/07/17 06:22 Dose: 2 mg Nitroglycerin (Nitro-Bid 2% Oint) 1 ea TOP Q12 PRN PRN Reason: chest pain Pantoprazole Sodium (Protonix Inj) 40 mg IVP DAILY [facility] Last Admin: 04/07/17 09:31 Dose: 40 mg Rosuvastatin Calcium (Crestor) 40 mg PO HS [facility] Last Admin: 04/06/17 22:00 Dose: 40 mg Zolpidem Tartrate (Ambien) 5 mg PO HS PRN PRN Reason: Insomnia Last Admin: 04/06/17 22:33 Dose: 5 mg - Labs Labs: 04/07/17 06:39 04/07/17 06:39 PT 13.2 SECONDS (9.7-12.2) H 04/06/17 10:09 INR 1.2 04/06/17 10:09 APTT 19 SECONDS (21-34) L 04/06/17 10:09 - Constitutional Appears: No Acute Distress - Head Exam Head Exam: NORMAL INSPECTION, NORMOCEPHALIC - Eye Exam Eye Exam: EOMI, Normal appearance - ENT Exam ENT Exam: Mucous Membranes Moist - Respiratory Exam Respiratory Exam: Clear to Ausculation Bilateral, NORMAL BREATHING PATTERN - Cardiovascular Exam Cardiovascular Exam: REGULAR RHYTHM Additional comments: Surgical scar from previous CABG - GI/Abdominal Exam GI & Abdominal Exam: Soft. absent: Distended, Firm, Guarding, Rigid, Tenderness - Neurological Exam Neurological Exam: Alert, Awake Neuro motor strength exam: Left Upper Extremity: 5, Right Upper Extremity: 5, Left Lower Extremity: 5, Right Lower Extremity: 5 - Psychiatric Exam Psychiatric exam: Normal Affect, Normal Mood - Skin Skin Exam: Normal Color, Warm Assessment and Plan - Assessment and Plan (Free Text) Assessment: NSTEMI 04/07: The troponins lex to 4.2 and then decreased overnight. He remains on tridil ggt at this moment. He is pending cardiac cath some time tommorrow. His pertient history includes CABG x 2 vessel, pacer, history of HTN Cardiology Consulted, Dr. Rucker EKG - no changes from prior EKG Troponin - elevated 1.1600, repeat 4.1700, f/u third trop CXR 04/06/17- Mild central vascular congestion. Left-sided pacemaker. Borderline cardiomegaly. Aspirin 81mg PO daily Carvedilol 6.25mg PO Q12H Plavix 75mg PO daily Enalapril Maleate 20mg PO daily Lovenox 70mg SC Q12H Morphine 2mg IVP Q4H PRN Nitro Paste 1/2 inch Q12H PRN Crestor 40mg PO HS HTN Enalapril Maleate 20mg PO daily Carvedilol 6.25mg PO Q12H [facility] Crestor 40mg PO HS Prophylactic Care DVT ppx - Lovenox 70mg SC Q12H GI ppx - Protonix 40mg IVP daily
--- NOTE | 2017-04-07 14:24 | CP.CCUPN ---
<Maxine Galdamez E - Last Filed: 04/07/17 14:41> CCU Subjective - Physician Review Subjective (Free Text): Patient was seen and examined at bedside. Patient had complaints of intermittent mild left-sided chest pain without radiation during the encounter. Patient denies nausea, vomiting, SOB, headache, dizziness, visual changes but admits to mild diaphoresis. Patient is ambulating and tolerating diet. CCU Objective - Vital Signs / Intake & Output Vital Signs (Last 4 hours): Vital Signs Temp Pulse Resp BP Pulse Ox 04/07/17 13:15 60 10 L 98 04/07/17 13:00 72 9 L 99 04/07/17 12:49 79 24 167/85 H 98 04/07/17 12:45 83 15 98 04/07/17 12:30 72 12 99 04/07/17 12:15 75 7 L 98 04/07/17 12:00 97.8 F 76 15 97 04/07/17 11:49 78 10 L 161/93 H 98 04/07/17 11:47 81 17 168/93 H 97 04/07/17 11:45 82 14 98 04/07/17 11:30 74 10 L 100 04/07/17 10:50 72 15 173/98 H 99 04/07/17 10:45 77 13 99 04/07/17 10:35 70 14 166/100 H 98 04/07/17 10:30 83 16 98 04/07/17 10:15 73 8 L 98 Intake and Output (Last 8hrs): Intake & Output 04/06/17 04/07/17 04/07/17 22:59 06:59 14:59 Intake Total 204.5 24.0 588 Output Total 700 300 Balance 204.5 -676.0 288 Weight 156 lb 156 lb Intake: IV 6 13 Intake, IV Amount 4.5 18.0 75 Left Wrist 4.5 18.0 75 Oral 200 500 Output: Urine 700 300 Urine, Voided 700 300 Other: # Voids Urine, Voided 0 # Bowel Movements 0 - Physical Exam Head: Positive for: Atraumatic, Normocephalic Extroacular Muscles: Positive for: EOMI Respiratory/Chest: Positive for: Clear to Auscultation, Decreased Breath Sounds (Bilateral lower bases) Cardiovascular: Positive for: Regular Rate and Rhythm, Normal S1, S2 Abdomen: Positive for: Normal Bowel Sounds. Negative for: Tenderness, Distention Upper Extremity: Positive for: Normal Inspection Lower Extremity: Positive for: Normal Inspection Skin: Positive for: Warm, Normal Color Psychiatric: Positive for: Alert, Oriented x 3 - Medications Active Medications: Active Medications Generic Name Dose Route Start Last Admin Trade Name Freq PRN Reason Stop Dose Admin Aspirin 81 mg 04/07/17 10:00 04/07/17 09:33 Aspirin Chewable PO 81 mg DAILY BESSIE Administration Carvedilol 6.25 mg 04/06/17 15:00 04/07/17 06:00 Coreg PO 6.25 mg Q12H BESSIE Administration Clopidogrel Bisulfate 75 mg 04/07/17 10:00 04/07/17 09:32 Plavix PO 75 mg DAILY BESSIE Administration Enalapril Maleate 20 mg 04/07/17 10:00 04/07/17 09:34 Vasotec PO 20 mg DAILY BESSIE Administration Enoxaparin Sodium 70 mg 04/06/17 22:00 04/07/17 09:32 Lovenox SC 70 mg Q12 BESSIE Administration Nitroglycerin/Dextrose 50 mg in 250 mls @ 1.5 mls/hr 04/06/17 17:30 04/07/17 07:58 Nitroglycerin 50 Mg/250 Ml D5w IV 40 mcg/min .Q24H BESSIE 12 mls/hr Protocol Titration 5 MCG/MIN Morphine Sulfate 2 mg 04/06/17 14:52 04/07/17 06:22 Morphine IVP 2 mg Q4 PRN Administration Pain, moderate (4-7) Nitroglycerin 1 ea 04/06/17 14:52 Nitro-Bid 2% Oint TOP Q12 PRN chest pain Pantoprazole Sodium 40 mg 04/07/17 10:00 04/07/17 09:31 Protonix Inj IVP 40 mg DAILY BESSIE Administration Rosuvastatin Calcium 40 mg 04/06/17 22:00 04/06/17 22:00 Crestor PO 40 mg HS BESSIE Administration Zolpidem Tartrate 5 mg 04/06/17 22:24 04/06/17 22:33 Ambien PO 5 mg HS PRN Administration Insomnia - Patient Studies Lab Studies: Lab Studies 04/07/17 04/07/17 04/07/17 Range/Units 06:39 06:39 06:39 WBC 7.9 (4.8-10.8) K/uL RBC 4.39 L (4.40-5.90) Mil/uL Hgb 13.7 (12.0-18.0) g/dL Hct 39.9 (35.0-51.0) % MCV 90.9 (80.0-94.0) fL MCH 31.3 H (27.0-31.0) pg MCHC 34.4 (33.0-37.0) g/dL RDW 13.8 (11.5-14.5) % Plt Count 267 (130-400) K/uL MPV 8.6 (7.2-11.7) fL Neut % (Auto) 64.8 (50.0-75.0) % Lymph % (Auto) 24.2 (20.0-40.0) % [place] % (Auto) 9.4 (0.0-10.0) % Eos % (Auto) 0.7 (0.0-4.0) % Baso % (Auto) 0.9 (0.0-2.0) % Neut # 5.1 (1.8-7.0) K/uL Lymph # 1.9 (1.0-4.3) K/uL [place] # 0.7 (0.0-0.8) K/uL Eos # 0.1 (0.0-0.7) K/uL Baso # 0.1 (0.0-0.2) K/uL Sodium 137 (132-148) mmol/L Potassium 5.0 (3.6-5.2) mmol/L Chloride 97 L (98-107) mmol/L Carbon Dioxide 25 (22-30) mmol/L Anion Gap 20 (10-20) BUN 18 (9-20) mg/dL Creatinine 0.9 (0.8-1.5) MG/DL Est GFR ( Amer) > 60 Est GFR (Non-Af Amer) > 60 Random Glucose 120 H (75-110) mg/dL Calcium 9.2 (8.6-10.4) mg/dl Phosphorus 2.7 (2.5-4.5) mg/dL Magnesium 1.7 (1.6-2.3) mg/dL Total Bilirubin 2.0 H (0.2-1.3) mg/dL AST 75 H D (17-59) U/L ALT 30 (21-72) U/L Alkaline Phosphatase 44 (38-126) U/L Total Creatine Kinase (55-170) U/L CK-MB (Mass) (0.0-3.38) ng/mL Troponin I 2.2200 H* (0.00-0.120) ng/mL Troponin I, Quant (0.00-0.120) ng/mL Total Protein 8.2 (6.3-8.3) g/dL Albumin 4.5 (3.5-5.0) g/dL Globulin 3.7 (2.2-3.9) gm/dL Albumin/Globulin Ratio 1.2 (1.0-2.1) 04/06/17 04/06/17 Range/Units 22:25 16:32 WBC (4.8-10.8) K/uL RBC (4.40-5.90) Mil/uL Hgb (12.0-18.0) g/dL Hct (35.0-51.0) % MCV (80.0-94.0) fL MCH (27.0-31.0) pg MCHC (33.0-37.0) g/dL RDW (11.5-14.5) % Plt Count (130-400) K/uL MPV (7.2-11.7) fL Neut % (Auto) (50.0-75.0) % Lymph % (Auto) (20.0-40.0) % [place] % (Auto) (0.0-10.0) % Eos % (Auto) (0.0-4.0) % Baso % (Auto) (0.0-2.0) % Neut # (1.8-7.0) K/uL Lymph # (1.0-4.3) K/uL [place] # (0.0-0.8) K/uL Eos # (0.0-0.7) K/uL Baso # (0.0-0.2) K/uL Sodium (132-148) mmol/L Potassium (3.6-5.2) mmol/L Chloride (98-107) mmol/L Carbon Dioxide (22-30) mmol/L Anion Gap (10-20) BUN (9-20) mg/dL Creatinine (0.8-1.5) MG/DL Est GFR ( Amer) Est GFR (Non-Af Amer) Random Glucose (75-110) mg/dL Calcium (8.6-10.4) mg/dl Phosphorus (2.5-4.5) mg/dL Magnesium (1.6-2.3) mg/dL Total Bilirubin (0.2-1.3) mg/dL AST (17-59) U/L ALT (21-72) U/L Alkaline Phosphatase (38-126) U/L Total Creatine Kinase 185 H 226 H (55-170) U/L CK-MB (Mass) 9.02 H 13.0 H (0.0-3.38) ng/mL Troponin I (0.00-0.120) ng/mL Troponin I, Quant 4.0000 H* 4.1700 H* (0.00-0.120) ng/mL Total Protein (6.3-8.3) g/dL Albumin (3.5-5.0) g/dL Globulin (2.2-3.9) gm/dL Albumin/Globulin Ratio (1.0-2.1) Laboratory Results - last 24 hr 04/06/17 04/06/17 04/07/17 16:32 22:25 06:39 WBC 7.9 RBC 4.39 L Hgb 13.7 Hct 39.9 MCV 90.9 MCH 31.3 H MCHC 34.4 RDW 13.8 Plt Count 267 MPV 8.6 Neut % (Auto) 64.8 Lymph % (Auto) 24.2 [place] % (Auto) 9.4 Eos % (Auto) 0.7 Baso % (Auto) 0.9 Neut # 5.1 Lymph # 1.9 [place] # 0.7 Eos # 0.1 Baso # 0.1 Sodium Potassium Chloride Carbon Dioxide Anion Gap BUN Creatinine Est GFR ( Amer) Est GFR (Non-Af Amer) Random Glucose Calcium Phosphorus Magnesium Total Bilirubin AST ALT Alkaline Phosphatase Total Creatine Kinase 226 H 185 H CK-MB (Mass) 13.0 H 9.02 H Troponin I Troponin I, Quant 4.1700 H* 4.0000 H* Total Protein Albumin Globulin Albumin/Globulin Ratio 04/07/17 04/07/17 06:39 06:39 WBC RBC Hgb Hct MCV MCH MCHC RDW Plt Count MPV Neut % (Auto) Lymph % (Auto) [place] % (Auto) Eos % (Auto) Baso % (Auto) Neut # Lymph # [place] # Eos # Baso # Sodium 137 Potassium 5.0 Chloride 97 L Carbon Dioxide 25 Anion Gap 20 BUN 18 Creatinine 0.9 Est GFR ( Amer) > 60 Est GFR (Non-Af Amer) > 60 Random Glucose 120 H Calcium 9.2 Phosphorus 2.7 Magnesium 1.7 Total Bilirubin 2.0 H AST 75 H D ALT 30 Alkaline Phosphatase 44 Total Creatine Kinase CK-MB (Mass) Troponin I 2.2200 H* Troponin I, Quant Total Protein 8.2 Albumin 4.5 Globulin 3.7 Albumin/Globulin Ratio 1.2 EKG/Cardiology Studies: Cardiology / EKG Studies 04/06/17 17:17 EKG [ELECTROCARDIOGRAM] Stat Comment: Mode Of Transportation: Reason For Exam: elevated trop 04/07/17 07:57 ELECTROCARDIOGRAM Stat Comment: Mode Of Transportation: PORTABLE Reason For Exam: ACS Review of Systems - Constitutional Constitutional: absent: Fever, Chills, Sweats - EENT Eyes: absent: Blurred Vision, Change in Vision Ears: absent: Dizziness - Cardiovascular Cardiovascular: absent: Chest Pain, Chest Pain at Rest, Diaphoresis, Dyspnea, Palpitations, Syncope - Gastrointestinal Gastrointestinal: absent: Abdominal Pain, Cramping, Diarrhea, Nausea, Vomiting - Genitourinary Genitourinary: absent: Difficulty Urinating, Urinary Frequency, Urinary Urgency - Musculoskeletal Musculoskeletal: absent: Numbness, Tingling - Neurological Neurological: absent: Dizziness, Headaches, Syncope, Weakness - Endocrine Endocrine: absent: Fatigue, Palpitations Critical Care Progress Note - Nutrition Nutrition: Nutrition Category Date Time Status Heart Healthy Diet [DIET] Diets 04/06/17 Dinner Active Assessment/Plan - Assessment and Plan (Free Text) Assessment: 61 year old male with past medical history PMHx of CABG (2008), asthma, HTN, HLD and insomnia who presents with complaints of left-sided chest pain with elevated troponins (1.1600--->4.1700-->4.0-->2.20) Plans: Cardiac catherizaton with Dr. Rucker tomorrow, 04/08/17 Plan: Cardio: NSTEMI with elevated Tropnins, Hx of CAD, HTN AND HLD Cardiology Consult: Dr. Rucker on board--> Help appreciated * Plans for cardiac catherization on 04/08/17 Medications: * Aspirin 81mg PO daily * Coreg 6.25mg PO Q12H * Plavix 75mg PO daily * Nitroglycerin 1 ea top q12 prn * Crestor 40mg PO HS * Vasotec 20mg PO daily * Morphine 2mg IV Q4 prn for pain control Psych: Insomnia Medication: * Ambien 5mg PO HS PRN Prophylaxis: DVT: Lovenox 70mg SC Q12h and ambulating GI: Protonix 40mg PO daily <JenniferArmando john M - Last Filed: 04/07/17 15:44> CCU Objective - Vital Signs / Intake & Output Vital Signs (Last 4 hours): Vital Signs Temp Pulse Resp BP Pulse Ox 04/07/17 14:50 76 11 L 167/83 H 97 04/07/17 14:45 89 8 L 98 04/07/17 14:30 76 9 L 98 04/07/17 14:15 84 8 L 99 04/07/17 14:00 82 9 L 99 04/07/17 13:49 93 H 8 L 161/87 H 99 04/07/17 13:45 84 7 L 98 04/07/17 13:30 96 H 16 97 04/07/17 13:15 60 10 L 98 04/07/17 13:00 72 9 L 99 04/07/17 12:49 79 24 167/85 H 98 04/07/17 12:45 83 15 98 04/07/17 12:30 72 12 99 04/07/17 12:15 75 7 L 98 04/07/17 12:00 97.8 F 76 15 97 04/07/17 11:49 78 10 L 161/93 H 98 04/07/17 11:47 81 17 168/93 H 97 04/07/17 11:45 82 14 98 Intake and Output (Last 8hrs): Intake & Output 04/07/17 04/07/17 04/07/17 06:59 14:59 22:59 Intake Total 24.0 600 Output Total 700 400 Balance -676.0 200 Weight 156 lb Intake: IV 6 13 Intake, IV Amount 18.0 87 Left Wrist 18.0 87 Oral 500 Output: Urine 700 400 Urine, Voided 700 400 Other: # Voids Urine, Voided 0 # Bowel Movements 0 - Medications Active Medications: Active Medications Generic Name Dose Route Start Last Admin Trade Name Freq PRN Reason Stop Dose Admin Aspirin 81 mg 04/07/17 10:00 04/07/17 09:33 Aspirin Chewable PO 81 mg DAILY BESSIE Administration Carvedilol 6.25 mg 04/06/17 15:00 04/07/17 14:37 Coreg PO 6.25 mg Q12H BESSIE Administration Clopidogrel Bisulfate 75 mg 04/07/17 10:00 04/07/17 09:32 Plavix PO 75 mg DAILY BESSIE Administration Enalapril Maleate 20 mg 04/07/17 10:00 04/07/17 09:34 Vasotec PO 20 mg DAILY BESSIE Administration Enoxaparin Sodium 70 mg 04/06/17 22:00 04/07/17 09:32 Lovenox SC 70 mg Q12 BESSIE Administration Nitroglycerin/Dextrose 50 mg in 250 mls @ 1.5 mls/hr 04/06/17 17:30 04/07/17 07:58 Nitroglycerin 50 Mg/250 Ml D5w IV 40 mcg/min .Q24H BESSIE 12 mls/hr Protocol Titration 5 MCG/MIN Morphine Sulfate 2 mg 04/06/17 14:52 04/07/17 06:22 Morphine IVP 2 mg Q4 PRN Administration Pain, moderate (4-7) Nitroglycerin 1 ea 04/06/17 14:52 Nitro-Bid 2% Oint TOP Q12 PRN chest pain Pantoprazole Sodium 40 mg 04/07/17 10:00 04/07/17 09:31 Protonix Inj IVP 40 mg DAILY BESSIE Administration Rosuvastatin Calcium 40 mg 04/06/17 22:00 04/06/17 22:00 Crestor PO 40 mg HS BESSIE Administration Zolpidem Tartrate 5 mg 04/06/17 22:24 04/06/17 22:33 Ambien PO 5 mg HS PRN Administration Insomnia - Patient Studies Lab Studies: Lab Studies 04/07/17 04/07/17 04/07/17 Range/Units 06:39 06:39 06:39 WBC 7.9 (4.8-10.8) K/uL RBC 4.39 L (4.40-5.90) Mil/uL Hgb 13.7 (12.0-18.0) g/dL Hct 39.9 (35.0-51.0) % MCV 90.9 (80.0-94.0) fL MCH 31.3 H (27.0-31.0) pg MCHC 34.4 (33.0-37.0) g/dL RDW 13.8 (11.5-14.5) % Plt Count 267 (130-400) K/uL MPV 8.6 (7.2-11.7) fL Neut % (Auto) 64.8 (50.0-75.0) % Lymph % (Auto) 24.2 (20.0-40.0) % [place] % (Auto) 9.4 (0.0-10.0) % Eos % (Auto) 0.7 (0.0-4.0) % Baso % (Auto) 0.9 (0.0-2.0) % Neut # 5.1 (1.8-7.0) K/uL Lymph # 1.9 (1.0-4.3) K/uL [place] # 0.7 (0.0-0.8) K/uL Eos # 0.1 (0.0-0.7) K/uL Baso # 0.1 (0.0-0.2) K/uL Sodium 137 (132-148) mmol/L Potassium 5.0 (3.6-5.2) mmol/L Chloride 97 L (98-107) mmol/L Carbon Dioxide 25 (22-30) mmol/L Anion Gap 20 (10-20) BUN 18 (9-20) mg/dL Creatinine 0.9 (0.8-1.5) MG/DL Est GFR ( Amer) > 60 Est GFR (Non-Af Amer) > 60 Random Glucose 120 H (75-110) mg/dL Calcium 9.2 (8.6-10.4) mg/dl Phosphorus 2.7 (2.5-4.5) mg/dL Magnesium 1.7 (1.6-2.3) mg/dL Total Bilirubin 2.0 H (0.2-1.3) mg/dL AST 75 H D (17-59) U/L ALT 30 (21-72) U/L Alkaline Phosphatase 44 (38-126) U/L Total Creatine Kinase (55-170) U/L CK-MB (Mass) (0.0-3.38) ng/mL Troponin I 2.2200 H* (0.00-0.120) ng/mL Troponin I, Quant (0.00-0.120) ng/mL Total Protein 8.2 (6.3-8.3) g/dL Albumin 4.5 (3.5-5.0) g/dL Globulin 3.7 (2.2-3.9) gm/dL Albumin/Globulin Ratio 1.2 (1.0-2.1) 04/06/17 04/06/17 Range/Units 22:25 16:32 WBC (4.8-10.8) K/uL RBC (4.40-5.90) Mil/uL Hgb (12.0-18.0) g/dL Hct (35.0-51.0) % MCV (80.0-94.0) fL MCH (27.0-31.0) pg MCHC (33.0-37.0) g/dL RDW (11.5-14.5) % Plt Count (130-400) K/uL MPV (7.2-11.7) fL Neut % (Auto) (50.0-75.0) % Lymph % (Auto) (20.0-40.0) % [place] % (Auto) (0.0-10.0) % Eos % (Auto) (0.0-4.0) % Baso % (Auto) (0.0-2.0) % Neut # (1.8-7.0) K/uL Lymph # (1.0-4.3) K/uL [place] # (0.0-0.8) K/uL Eos # (0.0-0.7) K/uL Baso # (0.0-0.2) K/uL Sodium (132-148) mmol/L Potassium (3.6-5.2) mmol/L Chloride (98-107) mmol/L Carbon Dioxide (22-30) mmol/L Anion Gap (10-20) BUN (9-20) mg/dL Creatinine (0.8-1.5) MG/DL Est GFR ( Amer) Est GFR (Non-Af Amer) Random Glucose (75-110) mg/dL Calcium (8.6-10.4) mg/dl Phosphorus (2.5-4.5) mg/dL Magnesium (1.6-2.3) mg/dL Total Bilirubin (0.2-1.3) mg/dL AST (17-59) U/L ALT (21-72) U/L Alkaline Phosphatase (38-126) U/L Total Creatine Kinase 185 H 226 H (55-170) U/L CK-MB (Mass) 9.02 H 13.0 H (0.0-3.38) ng/mL Troponin I (0.00-0.120) ng/mL Troponin I, Quant 4.0000 H* 4.1700 H* (0.00-0.120) ng/mL Total Protein (6.3-8.3) g/dL Albumin (3.5-5.0) g/dL Globulin (2.2-3.9) gm/dL Albumin/Globulin Ratio (1.0-2.1) Laboratory Results - last 24 hr 04/06/17 04/06/17 04/07/17 16:32 22:25 06:39 WBC 7.9 RBC 4.39 L Hgb 13.7 Hct 39.9 MCV 90.9 MCH 31.3 H MCHC 34.4 RDW 13.8 Plt Count 267 MPV 8.6 Neut % (Auto) 64.8 Lymph % (Auto) 24.2 [place] % (Auto) 9.4 Eos % (Auto) 0.7 Baso % (Auto) 0.9 Neut # 5.1 Lymph # 1.9 [place] # 0.7 Eos # 0.1 Baso # 0.1 Sodium Potassium Chloride Carbon Dioxide Anion Gap BUN Creatinine Est GFR ( Amer) Est GFR (Non-Af Amer) Random Glucose Calcium Phosphorus Magnesium Total Bilirubin AST ALT Alkaline Phosphatase Total Creatine Kinase 226 H 185 H CK-MB (Mass) 13.0 H 9.02 H Troponin I Troponin I, Quant 4.1700 H* 4.0000 H* Total Protein Albumin Globulin Albumin/Globulin Ratio 04/07/17 04/07/17 06:39 06:39 WBC RBC Hgb Hct MCV MCH MCHC RDW Plt Count MPV Neut % (Auto) Lymph % (Auto) [place] % (Auto) Eos % (Auto) Baso % (Auto) Neut # Lymph # [place] # Eos # Baso # Sodium 137 Potassium 5.0 Chloride 97 L Carbon Dioxide 25 Anion Gap 20 BUN 18 Creatinine 0.9 Est GFR ( Amer) > 60 Est GFR (Non-Af Amer) > 60 Random Glucose 120 H Calcium 9.2 Phosphorus 2.7 Magnesium 1.7 Total Bilirubin 2.0 H AST 75 H D ALT 30 Alkaline Phosphatase 44 Total Creatine Kinase CK-MB (Mass) Troponin I 2.2200 H* Troponin I, Quant Total Protein 8.2 Albumin 4.5 Globulin 3.7 Albumin/Globulin Ratio 1.2 EKG/Cardiology Studies: Cardiology / EKG Studies 04/06/17 17:17 EKG [ELECTROCARDIOGRAM] Stat Comment: Mode Of Transportation: Reason For Exam: elevated trop 04/07/17 07:57 ELECTROCARDIOGRAM Stat Comment: Mode Of Transportation: PORTABLE Reason For Exam: ACS Critical Care Progress Note - Nutrition Nutrition: Nutrition Category Date Time Status Heart Healthy Diet [DIET] Diets 04/06/17 Dinner Active NPO Diet [DIET] Diets 04/08/17 Breakfast Active Attending/Attestation - Attestation I have personally seen and examined this patient.: Yes I have fully participated in the care of the patient.: Yes I have reviewed all pertinent clinical information: Yes Notes (Text): 04/07/17 15:43 Today: Friday, April 07, 2017 The Patient was seen and examined at the bedside, Medical records reviewed, and management issues were discussed and formulated with the house staff. I have reviewed all the relevant clinical, laboratory, hemodynamic, radiographic data and medications Events reviewed Pain issues, skin care, head of the bed elevation, glycemic control were addressed. Agree with above treatment plans as transcribed in note I concur with resident's assessment and plan of care as transcribed in Dr. Galdamez note. Code status: Full code
[2017-04-07] MEDS: Nitroglycerin 50mg in D5W 50 MG/250 ML BOTTLE IV SCH (17:50)
--- NOTE | 2017-04-07 23:26 | CP.PCM.PN ---
Subjective - Date & Time of Evaluation Date of Evaluation: 04/07/17 Time of Evaluation: 14:30 - Subjective Subjective: Patient seen and evaluated Denies chest pain Review of Systems - Constitutional Constitutional: absent: Chills, Excessive Sweating, Fever, Headache, Lethargy, Weakness - EENT Eyes: absent: Blurred Vision, Change in Vision, Loss of Peripheral Vision Nose/Mouth/Throat: absent: Epistaxis, Nasal Congestion, Hoarsness, Sore Throat - Cardiovascular Cardiovascular: Chest Pain ("shock" - like pain), Chest Pain at Rest (occurred while watching tv), Radiating Pain (left chest to the right chest). absent: Diaphoresis, Dyspnea, Pain Radiating to Arm/Neck/Jaw, Leg Edema, Syncope - Gastrointestinal Gastrointestinal: Nausea (once), Vomiting (once). absent: Abdominal Pain - Musculoskeletal Musculoskeletal: absent: Abnormal Gait, Back Pain, Muscle Weakness, Numbness, Tingling - Integumentary Integumentary: absent: Erythema, Rash - Neurological Neurological: absent: Dizziness, Numbness, Headaches, Syncope, Tingling, Vertigo , Weakness - Psychiatric Psychiatric: absent: Anxiety, Change in Appetite, Depression - Endocrine Endocrine: absent: Fatigue, Palpitations, Polydipsia, Polyphagia Meds Allergies/Adverse Reactions: Allergies Allergy/AdvReac Type Severity Reaction Status Date / Time No Known Allergies Allergy Verified 04/06/17 09:40 Physical Exam - Constitutional Appears: Well, Non-toxic, No Acute Distress - Head Exam Head Exam: ATRAUMATIC, NORMOCEPHALIC - Eye Exam Eye Exam: EOMI, Normal appearance - ENT Exam ENT Exam: Mucous Membranes Moist - Respiratory Exam Respiratory Exam: Clear to Auscultation Bilateral, NORMAL BREATHING PATTERN. absent: Accessory Muscle Use, Rales, Rhonchi, Wheezes, Respiratory Distress - Cardiovascular Exam Cardiovascular Exam: REGULAR RHYTHM, +S1, +S2 - GI/Abdominal Exam GI & Abdominal Exam: Normal Bowel Sounds, Soft. absent: Distended, Guarding, Rigid - Extremities Exam Extremities exam: Positive for: normal inspection. Negative for: calf tenderness, joint swelling, pedal edema, tenderness - Back Exam Back exam: absent: CVA tenderness (L), CVA tenderness (R), paraspinal tenderness , tenderness, vertebral tenderness - Neurological Exam Neurological exam: Alert, CN II-XII Intact, Oriented x3 - Psychiatric Exam Psychiatric exam: Normal Affect, Normal Mood - Skin Skin Exam: Dry, Intact, Normal Color, Warm Objective - Vital Signs/Intake and Output Vital Signs (last 24 hours): Temp Pulse Resp BP Pulse Ox 99.4 F 73 17 127/70 98 04/07/17 20:00 04/07/17 22:03 04/07/17 22:03 04/07/17 22:03 04/07/17 22:03 Intake and Output: 04/07/17 04/08/17 18:59 06:59 Intake Total 1069 24 Output Total 750 350 Balance 319 -326 - Medications Medications: Current Medications Aspirin (Aspirin Chewable) 81 mg PO DAILY [facility] Last Admin: 04/07/17 09:33 Dose: 81 mg Carvedilol (Coreg) 6.25 mg PO Q12H [facility] Last Admin: 04/07/17 14:37 Dose: 6.25 mg Clopidogrel Bisulfate (Plavix) 75 mg PO DAILY [facility] Last Admin: 04/07/17 09:32 Dose: 75 mg Enalapril Maleate (Vasotec) 20 mg PO DAILY [facility] Last Admin: 04/07/17 09:34 Dose: 20 mg Enoxaparin Sodium (Lovenox) 70 mg SC Q12 [facility] Last Admin: 04/07/17 21:35 Dose: 70 mg Nitroglycerin/Dextrose (Nitroglycerin 50 Mg/250 Ml D5w) 50 mg in 250 mls @ 1.5 mls/hr IV .Q24H BESSIE; 5 MCG/MIN PRN Reason: Protocol Last Titration: 04/07/17 18:55 Dose: 20 mcg/min, 6 mls/hr Morphine Sulfate (Morphine) 2 mg IVP Q4 PRN PRN Reason: Pain, moderate (4-7) Last Admin: 04/07/17 06:22 Dose: 2 mg Nitroglycerin (Nitro-Bid 2% Oint) 1 ea TOP Q12 PRN PRN Reason: chest pain Pantoprazole Sodium (Protonix Inj) 40 mg IVP DAILY [facility] Last Admin: 04/07/17 09:31 Dose: 40 mg Rosuvastatin Calcium (Crestor) 40 mg PO HS [facility] Last Admin: 04/07/17 21:35 Dose: 40 mg Zolpidem Tartrate (Ambien) 5 mg PO HS PRN PRN Reason: Insomnia Last Admin: 04/07/17 22:36 Dose: 5 mg - Labs Labs: 04/07/17 06:39 04/07/17 06:39 PT 13.2 SECONDS (9.7-12.2) H 04/06/17 10:09 INR 1.2 04/06/17 10:09 APTT 19 SECONDS (21-34) L 04/06/17 10:09 Assessment and Plan - Assessment and Plan (Free Text) Assessment: NSTEMI 04/07: The troponins lex to 4.2 and then decreased overnight. He remains on tridil ggt at this moment. He is pending cardiac cath tommorrow. His pertient history includes CABG x 2 vessel, pacer, history of HTN EKG - no changes from prior EKG Troponin - elevated 1.1600, repeat 4.1700, f/u third trop CXR 04/06/17- Mild central vascular congestion. Left-sided pacemaker. Borderline cardiomegaly. Aspirin 81mg PO daily Carvedilol 6.25mg PO Q12H Plavix 75mg PO daily Enalapril Maleate 20mg PO daily Lovenox 70mg SC Q12H Morphine 2mg IVP Q4H PRN Nitro Paste 1/2 inch Q12H PRN Crestor 40mg PO HS For Cath Tomorrow HTN Enalapril Maleate 20mg PO daily Carvedilol 6.25mg PO Q12H HLD Crestor 40mg PO HS Prophylactic Care DVT ppx - Lovenox 70mg SC Q12H GI ppx - Protonix 40mg IVP daily
[2017-04-08 06:47] LABS: BASO # 0.1 K/uL (0.0-0.2); BASO % 0.8 % (0.0-2.0); EOS % 0.5 % (0.0-4.0); LYMPH # 1.9 K/uL (1.0-4.3); LYMPH % 25.6 % (20.0-40.0); MEAN CELL VOLUME 90.1 fL (80.0-94.0); MEAN CORPUSCULAR HEMOGLOBIN 31.2 pg (27.0-31.0); MEAN CORPUSCULAR HGB CONC 34.6 g/dL (33.0-37.0); MEAN PLATELET VOLUME 8.8 fL (7.2-11.7); MONO # 0.7 K/uL (0.0-0.8); MONO % 8.8 % (0.0-10.0); RED CELL DISTRIBUTION WIDTH 13.8 % (11.5-14.5); WHITE BLOOD COUNT 7.4 K/uL (4.8-10.8)
[2017-04-08 07:01] LABS: ALKALINE PHOSPHATASE 38 U/L (38-126); ALT/SGPT 36 U/L (21-72); AST/SGOT 45 U/L (17-59); BILIRUBIN,TOTAL 1.5 mg/dL (0.2-1.3); BLOOD UREA NITROGEN 18 mg/dL (9-20); CALCIUM 9.5 mg/dl (8.6-10.4); CARBON DIOXIDE 28 mmol/L (22-30); CHLORIDE 98 mmol/L (98-107); GFR AFRICAN-AMERICAN > 60; GLUCOSE,RANDOM 100 mg/dL (75-110); POTASSIUM 3.8 mmol/L (3.6-5.2); SODIUM 138 mmol/L (132-148); TOTAL PROTEIN 7.6 g/dL (6.3-8.3)
[2017-04-08] MEDS ORDERED: Midazolam 2 MG/2 ML VIAL ONE (08:41)
[2017-04-08] MEDS ORDERED: Iodixanol 320 MG/ML 200 ML BOTTLE IV ONE (09:08)
[2017-04-08] MEDS ORDERED: Sodium Chloride 0.9% 1,000 ML IV SCH (10:45)
--- NOTE | 2017-04-08 11:10 | CP.PCM.PN ---
Subjective - Date & Time of Evaluation Date of Evaluation: 04/08/17 Time of Evaluation: 10:45 - Subjective Subjective: Patient was seen and examined by me. The patient is S/P cardiac catherization. Per cardiology he will need to go to [facility] tomorrow for placement of stent. The patient appeared well when I saw him. He denied chest pain, denied shortness of breath, denid abdominal pain. Femoral area tender, however is clean, dry, intact. No bleeding. Also of note is patient was found to have an anursym, will need follow up. Objective - Vital Signs/Intake and Output Vital Signs (last 24 hours): Temp Pulse Resp BP Pulse Ox 98 F 72 14 145/77 97 04/08/17 08:00 04/08/17 07:03 04/08/17 07:03 04/08/17 10:57 04/08/17 07:03 Intake and Output: 04/08/17 04/08/17 06:59 18:59 Intake Total 78 12 Output Total 650 Balance -572 12 - Medications Medications: Current Medications Acetaminophen (Tylenol 325mg Tab) 650 mg PO Q6 PRN PRN Reason: Pain, Mild (1-3) Aspirin (Aspirin Chewable) 81 mg PO DAILY [facility] Last Admin: 04/08/17 10:56 Dose: 81 mg Carvedilol (Coreg) 6.25 mg PO Q12H [facility] Last Admin: 04/08/17 02:57 Dose: 6.25 mg Clopidogrel Bisulfate (Plavix) 75 mg PO DAILY [facility] Last Admin: 04/08/17 10:55 Dose: 75 mg Enalapril Maleate (Vasotec) 20 mg PO DAILY [facility] Last Admin: 04/08/17 10:57 Dose: 20 mg Enoxaparin Sodium (Lovenox) 70 mg SC Q12 [facility] Last Admin: 04/07/17 21:35 Dose: 70 mg Enoxaparin Sodium (Lovenox) 70 mg SC ONCE ONE Stop: 04/08/17 20:01 Nitroglycerin/Dextrose (Nitroglycerin 50 Mg/250 Ml D5w) 50 mg in 250 mls @ 1.5 mls/hr IV .Q24H BESSIE; 5 MCG/MIN PRN Reason: Protocol Last Titration: 04/07/17 18:55 Dose: 20 mcg/min, 6 mls/hr Sodium Chloride (Sodium Chloride 0.9%) 1,000 mls @ 50 mls/hr IV .Q20H BESSIE Stop: 04/08/17 22:00 Last Admin: 04/08/17 10:56 Dose: 50 mls/hr Morphine Sulfate (Morphine) 2 mg IVP Q4 PRN PRN Reason: Pain, moderate (4-7) Last Admin: 04/07/17 06:22 Dose: 2 mg Nitroglycerin (Nitro-Bid 2% Oint) 1 ea TOP Q12 PRN PRN Reason: chest pain Pantoprazole Sodium (Protonix Inj) 40 mg IVP DAILY [facility] Last Admin: 04/08/17 10:55 Dose: 40 mg Rosuvastatin Calcium (Crestor) 40 mg PO HS [facility] Last Admin: 04/07/17 21:35 Dose: 40 mg Zolpidem Tartrate (Ambien) 5 mg PO HS PRN PRN Reason: Insomnia Last Admin: 04/07/17 22:36 Dose: 5 mg - Labs Labs: 04/08/17 06:36 04/08/17 06:36 PT 13.2 SECONDS (9.7-12.2) H 04/06/17 10:09 INR 1.2 04/06/17 10:09 APTT 19 SECONDS (21-34) L 04/06/17 10:09 - Constitutional Appears: Well, Non-toxic, No Acute Distress - Head Exam Head Exam: NORMAL INSPECTION, NORMOCEPHALIC - Eye Exam Eye Exam: EOMI, Normal appearance - ENT Exam ENT Exam: Mucous Membranes Moist - Respiratory Exam Respiratory Exam: Clear to Ausculation Bilateral, NORMAL BREATHING PATTERN - GI/Abdominal Exam GI & Abdominal Exam: Soft, Normal Bowel Sounds. absent: Guarding, Rigid, Tenderness - Neurological Exam Neurological Exam: Alert, Awake, Oriented x3 Neuro motor strength exam: Left Upper Extremity: 5, Right Upper Extremity: 5, Left Lower Extremity: 5, Right Lower Extremity: 5 - Psychiatric Exam Psychiatric exam: Normal Affect, Normal Mood - Skin Skin Exam: Normal Color, Warm Assessment and Plan - Assessment and Plan (Free Text) Assessment: NSTEMI 04/08: Status post cardiac cath today and will need to go to [facility] tommorow for steninting to be done. Currently chest pain free and not short of breath when I saw him 04/07: The troponins lex to 4.2 and then decreased overnight. He remains on tridil ggt at this moment. He is pending cardiac cath tommorrow. His pertient history includes CABG x 2 vessel, pacer, history of HTN EKG - no changes from prior EKG Troponin - elevated 1.1600, repeat 4.1700, f/u third trop CXR 04/06/17- Mild central vascular congestion. Left-sided pacemaker. Borderline cardiomegaly. Aspirin 81mg PO daily Carvedilol 6.25mg PO Q12H Plavix 75mg PO daily Enalapril Maleate 20mg PO daily Lovenox 70mg SC Q12H Morphine 2mg IVP Q4H PRN Nitro Paste 1/2 inch Q12H PRN Crestor 40mg PO HS Aneurysm found on cardiac catherization. HTN Enalapril Maleate 20mg PO daily Carvedilol 6.25mg PO Q12H HLD Crestor 40mg PO HS Prophylactic Care DVT ppx - Lovenox 70mg SC Q12H GI ppx - Protonix 40mg IVP daily
--- NOTE | 2017-04-08 12:02 | CARD ---
APPROVED REPORT EKG Measurement Heart [id number] <Conclusion> AV dual-paced rhythm Abnormal ECG
--- NOTE | 2017-04-08 12:02 | CARD ---
APPROVED REPORT EKG Measurement Heart [id number] <Conclusion> Atrial-sensed ventricular-paced rhythm Abnormal ECG
--- NOTE | 2017-04-08 12:11 | CARD ---
APPROVED REPORT EXAM: Two-dimensional and M-mode echocardiogram with Doppler and color Doppler. Other Information Quality : GoodRhythm : NSR INDICATION Chest Pain 2X STENT PLACEMENT (2013) Surgery/Intervention Pacemaker: Date: 2013 CABG: Date: 2008 RISK FACTORS Hypertension 2D DIMENSIONS IVSd1.0 (0.7-1.1cm)LVDd6.9 (3.9-5.9cm) PWd1.3 (0.7-1.1cm)LVDs6.1 (2.5-4.0cm) FS (%) 11.4 %LVEF (%)23.9 (>50%) M-Mode DIMENSIONS RVDd2.25 (2.1-3.2cm)Left Atrium (MM)4.62 (2.5-4.0cm) IVSd1.00 (0.7-1.1cm)Aortic Root3.53 (2.2-3.7cm) LVDd7.30 (4.0-5.6cm)Aortic Cusp Exc.1.87 (1.5-2.0cm) PWd1.14 (0.7-1.1cm)FS (%) 15 % LVDs6.23 (2.0-3.8cm)LVEF (%)30 (>50%) Mitral Valve MV E Hgiynjnk70.8cm/sMV A Rdfhmabr32.5cm/sE/A ratio1.3 TDI E/Lateral E'0.0E/Medial E'0.0 Tricuspid Valve TR Peak [id number]/sTR Peak [id number] LEFT VENTRICLE The Left Ventricle is severely dilated. There is normal left ventricular wall thickness. The Ejection Fraction is 30-35%. There is global hypokinesis of the left ventricle. Transmitral Doppler flow pattern is Grade II-pseudonormal filling dynamics. The left atrial pressure is moderately elevated.increased la volume index. RIGHT VENTRICLE The right ventricle is normal size. The right ventricular systolic function is normal. There is a pacemaker lead in the right ventricle. ATRIA The left atrium is moderately dilated. The right atrium size is normal. The interatrial septum is intact with no evidence for an atrial septal defect. AORTIC VALVE The aortic valve is normal in structure. No aortic regurgitation is present. MITRAL VALVE The mitral valve is normal in structure. Mitral regurgitation is moderate. TRICUSPID VALVE The tricuspid valve is normal in structure. There is mild tricuspid regurgitation. Right ventricular systolic pressure is estimated at 28 mmHg. There is no pulmonary hypertension. PULMONIC VALVE The pulmonary valve is normal in structure. There is mild pulmonic valvular regurgitation. GREAT VESSELS The aortic root is normal in size. The IVC is normal in size and collapses >50% with inspiration. PERICARDIAL EFFUSION There is no pericardial effusion. <Conclusion> The Left Ventricle is severely dilated. The Ejection Fraction is 30-35%. There is global hypokinesis of the left ventricle. Transmitral Doppler flow pattern is Grade II-pseudonormal filling dynamics. The left atrial pressure is moderately elevated.increased la volume index. The left atrium is moderately dilated. Mitral regurgitation is moderate. There is mild tricuspid regurgitation. Right ventricular systolic pressure is estimated at 28 mmHg. There is no pulmonary hypertension.
[2017-04-08] MEDS: Nitroglycerin 50mg in D5W 50 MG/250 ML BOTTLE IV SCH ×2 (14:43→18:28)
--- NOTE | 2017-04-08 16:19 | CP.CCUPN ---
<Maxine Galdamez E - Last Filed: 04/08/17 17:21> CCU Subjective - Physician Review Subjective (Free Text): Patient was seen and examined at bedside. Patient reports that he is doing well. Patient denies nausea, vomiting, SOB, headache, dizziness, visual changes but admits to mild diaphoresis. Patient is ambulating and tolerating diet. Patient is aware that he will be having a cardiac catherization today. CCU Objective - Vital Signs / Intake & Output Vital Signs (Last 4 hours): Vital Signs Pulse Resp BP Pulse Ox 04/08/17 15:03 66 14 133/64 97 04/08/17 15:00 74 15 97 04/08/17 14:43 132/73 04/08/17 14:03 70 13 132/73 96 04/08/17 14:00 65 14 97 04/08/17 13:03 74 18 132/71 99 04/08/17 13:02 87 17 98 04/08/17 13:00 77 13 98 Intake and Output (Last 8hrs): Intake & Output 04/08/17 04/08/17 04/08/17 06:59 14:59 22:59 Intake Total 54 808 356 Output Total 300 400 Balance -246 408 356 Weight 153 lb 9.6 oz Intake: IV 110 Intake, IV Amount 54 198 56 Left Proximal Port Wrist 150 50 Left Wrist 54 48 6 Oral 500 300 Output: Urine 300 400 Urine, Voided 300 400 Other: # Voids Urine, Voided 250 0 - Physical Exam Head: Positive for: Atraumatic, Normocephalic Extroacular Muscles: Positive for: EOMI Respiratory/Chest: Positive for: Clear to Auscultation, Decreased Breath Sounds (Bilateral lower bases) Cardiovascular: Positive for: Regular Rate and Rhythm, Normal S1, S2 Abdomen: Positive for: Normal Bowel Sounds. Negative for: Tenderness, Distention Upper Extremity: Positive for: Normal Inspection Lower Extremity: Positive for: Normal Inspection, Other (Right femoral area tender s/p cardiac catherization. No sign of hematoma ) Skin: Positive for: Warm, Normal Color Psychiatric: Positive for: Alert, Oriented x 3 - Medications Active Medications: Active Medications Generic Name Dose Route Start Last Admin Trade Name Freq PRN Reason Stop Dose Admin Acetaminophen 650 mg 04/08/17 09:49 Tylenol 325mg Tab PO Q6 PRN Pain, Mild (1-3) Aspirin 81 mg 04/07/17 10:00 04/08/17 10:56 Aspirin Chewable PO 81 mg DAILY [facility]ESSIE Administration Carvedilol 6.25 mg 04/06/17 15:00 04/08/17 14:39 Coreg PO 6.25 mg Q12H BESSIE Administration Clopidogrel Bisulfate 75 mg 04/07/17 10:00 04/08/17 10:55 Plavix PO 75 mg DAILY [facility] Administration Enalapril Maleate 20 mg 04/07/17 10:00 04/08/17 10:57 Vasotec PO 20 mg DAILY [facility] Administration Enoxaparin Sodium 70 mg 04/06/17 22:00 04/07/17 21:35 Lovenox SC 70 mg Q12 BESSIE Administration Enoxaparin Sodium 70 mg 04/08/17 20:00 Lovenox SC 04/08/17 20:01 ONCE ONE Nitroglycerin/Dextrose 50 mg in 250 mls @ 1.5 mls/hr 04/06/17 17:30 04/08/17 14:43 Nitroglycerin 50 Mg/250 Ml D5w IV 20 mcg/min .Q24H BESSIE 6 mls/hr Protocol Administration 5 MCG/MIN Sodium Chloride 1,000 mls @ 50 mls/hr 04/08/17 10:45 04/08/17 10:56 Sodium Chloride 0.9% IV 04/08/17 22:00 50 mls/hr .Q20H BESSIE Administration Morphine Sulfate 2 mg 04/06/17 14:52 04/07/17 06:22 Morphine IVP 2 mg Q4 PRN Administration Pain, moderate (4-7) Nitroglycerin 1 ea 04/06/17 14:52 Nitro-Bid 2% Oint TOP Q12 PRN chest pain Pantoprazole Sodium 40 mg 04/07/17 10:00 04/08/17 10:55 Protonix Inj IVP 40 mg DAILY [facility]IE Administration Rosuvastatin Calcium 40 mg 04/06/17 22:00 04/07/17 21:35 Crestor PO 40 mg HS BESSIE Administration Zolpidem Tartrate 5 mg 04/06/17 22:24 04/07/17 22:36 Ambien PO 5 mg HS PRN Administration Insomnia - Patient Studies Lab Studies: Microbiology Studies 04/06/17 19:37 MRSA Culture (Admit) - Final Naris MRSA NOT DETECTED Lab Studies 04/08/17 04/08/17 Range/Units 06:36 06:36 WBC 7.4 (4.8-10.8) K/uL RBC 4.22 L (4.40-5.90) Mil/uL Hgb 13.1 (12.0-18.0) g/dL Hct 38.0 (35.0-51.0) % MCV 90.1 (80.0-94.0) fL MCH 31.2 H (27.0-31.0) pg MCHC 34.6 (33.0-37.0) g/dL RDW 13.8 (11.5-14.5) % Plt Count 261 (130-400) K/uL MPV 8.8 (7.2-11.7) fL Neut % (Auto) 64.3 (50.0-75.0) % Lymph % (Auto) 25.6 (20.0-40.0) % Rock % (Auto) 8.8 (0.0-10.0) % Eos % (Auto) 0.5 (0.0-4.0) % Baso % (Auto) 0.8 (0.0-2.0) % Neut # 4.8 (1.8-7.0) K/uL Lymph # 1.9 (1.0-4.3) K/uL Rock # 0.7 (0.0-0.8) K/uL Eos # 0.0 (0.0-0.7) K/uL Baso # 0.1 (0.0-0.2) K/uL Sodium 138 (132-148) mmol/L Potassium 3.8 (3.6-5.2) mmol/L Chloride 98 (98-107) mmol/L Carbon Dioxide 28 (22-30) mmol/L Anion Gap 15 (10-20) BUN 18 (9-20) mg/dL Creatinine 1.0 (0.8-1.5) mg/dL Est GFR ( Amer) > 60 Est GFR (Non-Af Amer) > 60 Random Glucose 100 (75-110) mg/dL Calcium 9.5 (8.6-10.4) mg/dl Total Bilirubin 1.5 H (0.2-1.3) mg/dL AST 45 (17-59) U/L ALT 36 (21-72) U/L Alkaline Phosphatase 38 (38-126) U/L Total Protein 7.6 (6.3-8.3) g/dL Albumin 3.8 (3.5-5.0) g/dL Globulin 3.8 (2.2-3.9) gm/dL Albumin/Globulin Ratio 1.0 (1.0-2.1) Laboratory Results - last 24 hr 04/08/17 04/08/17 06:36 06:36 WBC 7.4 RBC 4.22 L Hgb 13.1 Hct 38.0 MCV 90.1 MCH 31.2 H MCHC 34.6 RDW 13.8 Plt Count 261 MPV 8.8 Neut % (Auto) 64.3 Lymph % (Auto) 25.6 Rock % (Auto) 8.8 Eos % (Auto) 0.5 Baso % (Auto) 0.8 Neut # 4.8 Lymph # 1.9 Rock # 0.7 Eos # 0.0 Baso # 0.1 Sodium 138 Potassium 3.8 Chloride 98 Carbon Dioxide 28 Anion Gap 15 BUN 18 Creatinine 1.0 Est GFR ( Amer) > 60 Est GFR (Non-Af Amer) > 60 Random Glucose 100 Calcium 9.5 Total Bilirubin 1.5 H AST 45 ALT 36 Alkaline Phosphatase 38 Total Protein 7.6 Albumin 3.8 Globulin 3.8 Albumin/Globulin Ratio 1.0 Review of Systems - Constitutional Constitutional: absent: Fever, Chills, Sweats, Weakness - EENT Eyes: absent: Blurred Vision, Change in Vision Ears: absent: Dizziness - Cardiovascular Cardiovascular: absent: Chest Pain, Diaphoresis, Dyspnea, Lightheadedness, Palpitations - Respiratory Respiratory: absent: Dyspnea - Gastrointestinal Gastrointestinal: absent: Abdominal Pain, Cramping, Diarrhea, Nausea, Vomiting - Neurological Neurological: absent: Dizziness, Headaches, Tingling, Weakness - Endocrine Endocrine: absent: Fatigue, Palpitations Critical Care Progress Note - Nutrition Nutrition: Nutrition Category Date Time Status NPO Diet [DIET] Diets 04/08/17 Dinner Active Assessment/Plan - Assessment and Plan (Free Text) Assessment: 61 year old male with past medical history PMHx of CABG (2008), asthma, HTN, HLD and insomnia who presents with complaints of left-sided chest pain with elevated troponins (1.1600, 4.1700, 4.000, 2.200) Today: Plans: Cardiac catherization 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 Rucker on board--> Help appreciated * Plans for cardiac catherization on 04/08/17 Medications: * Aspirin 81mg PO daily * Coreg 6.25mg PO Q12H * Plavix 300mg PO daily * Nitroglycerin 1 ea top q12 prn * Crestor 40mg PO HS * Vasotec 20mg PO daily * Morphine 2mg IV Q4 prn for pain control Echocardiogram: Left ventricle is severely dilated, EF: 30-35%, global hypokinesis of the left ventricle Percutaneous intervention tomorrow [facility] Renal: Cardiac Catherization (04/08/17): Infrarenal AAA noted as per verbal report from the cardiology team, patient is follow up with a CT scan Prophylaxis: DVT: Lovenox 70mg SC q12h GI: Protonix 40mg PO daily Tylenol 650mg PO Q6 PRN <Armando Henry M - Last Filed: 04/08/17 18:52> CCU Objective - Vital Signs / Intake & Output Vital Signs (Last 4 hours): Vital Signs Temp Pulse Resp BP Pulse Ox 04/08/17 18:03 68 17 121/59 L 99 04/08/17 18:00 67 19 98 04/08/17 17:03 61 17 131/68 97 04/08/17 17:00 64 14 98 04/08/17 16:03 63 11 L 121/62 97 04/08/17 16:00 99 F 63 12 98 04/08/17 15:03 66 14 133/64 97 04/08/17 15:00 74 15 97 Intake and Output (Last 8hrs): Intake & Output 04/08/17 04/08/17 04/08/17 06:59 14:59 22:59 Intake Total 54 808 612 Output Total 300 400 300 Balance -246 408 312 Weight 153 lb 9.6 oz Intake: IV 110 Intake, IV Amount 54 198 112 Left Proximal Port Wrist 150 100 Left Wrist 54 48 12 Oral 500 500 Output: Urine 300 400 300 Urine, Voided 300 400 300 Other: # Voids Urine, Voided 250 0 - Medications Active Medications: Active Medications Generic Name Dose Route Start Last Admin Trade Name Freq PRN Reason Stop Dose Admin Acetaminophen 650 mg 04/08/17 09:49 Tylenol 325mg Tab PO Q6 PRN Pain, Mild (1-3) Aspirin 81 mg 04/07/17 10:00 04/08/17 10:56 Aspirin Chewable PO 81 mg DAILY BESSIE Administration Carvedilol 6.25 mg 04/06/17 15:00 04/08/17 14:39 Coreg PO 6.25 mg Q12H BESSIE Administration Clopidogrel Bisulfate 75 mg 04/07/17 10:00 04/08/17 10:55 Plavix PO 75 mg DAILY BESSIE Administration Enalapril Maleate 20 mg 04/07/17 10:00 04/08/17 10:57 Vasotec PO 20 mg DAILY BESSIE Administration Enoxaparin Sodium 70 mg 04/06/17 22:00 04/07/17 21:35 Lovenox SC 70 mg Q12 BESSIE Administration Enoxaparin Sodium 70 mg 04/08/17 20:00 Lovenox SC 04/08/17 20:01 ONCE ONE Nitroglycerin/Dextrose 50 mg in 250 mls @ 1.5 mls/hr 04/06/17 17:30 04/08/17 18:28 Nitroglycerin 50 Mg/250 Ml D5w IV Not Given .Q24H BESSIE Protocol 5 MCG/MIN Sodium Chloride 1,000 mls @ 50 mls/hr 04/08/17 10:45 04/08/17 10:56 Sodium Chloride 0.9% IV 04/08/17 22:00 50 mls/hr .Q20H BESSIE Administration Morphine Sulfate 2 mg 04/06/17 14:52 04/07/17 06:22 Morphine IVP 2 mg Q4 PRN Administration Pain, moderate (4-7) Nitroglycerin 1 ea 04/06/17 14:52 Nitro-Bid 2% Oint TOP Q12 PRN chest pain Pantoprazole Sodium 40 mg 04/07/17 10:00 04/08/17 10:55 Protonix Inj IVP 40 mg DAILY BESSIE Administration Rosuvastatin Calcium 40 mg 04/06/17 22:00 04/07/17 21:35 Crestor PO 40 mg HS BESSIE Administration Zolpidem Tartrate 5 mg 04/06/17 22:24 04/07/17 22:36 Ambien PO 5 mg HS PRN Administration Insomnia - Patient Studies Lab Studies: Microbiology Studies 04/06/17 19:37 MRSA Culture (Admit) - Final Naris MRSA NOT DETECTED Lab Studies 04/08/17 04/08/17 Range/Units 06:36 06:36 WBC 7.4 (4.8-10.8) K/uL RBC 4.22 L (4.40-5.90) Mil/uL Hgb 13.1 (12.0-18.0) g/dL Hct 38.0 (35.0-51.0) % MCV 90.1 (80.0-94.0) fL MCH 31.2 H (27.0-31.0) pg MCHC 34.6 (33.0-37.0) g/dL RDW 13.8 (11.5-14.5) % Plt Count 261 (130-400) K/uL MPV 8.8 (7.2-11.7) fL Neut % (Auto) 64.3 (50.0-75.0) % Lymph % (Auto) 25.6 (20.0-40.0) % Rock % (Auto) 8.8 (0.0-10.0) % Eos % (Auto) 0.5 (0.0-4.0) % Baso % (Auto) 0.8 (0.0-2.0) % Neut # 4.8 (1.8-7.0) K/uL Lymph # 1.9 (1.0-4.3) K/uL Rock # 0.7 (0.0-0.8) K/uL Eos # 0.0 (0.0-0.7) K/uL Baso # 0.1 (0.0-0.2) K/uL Sodium 138 (132-148) mmol/L Potassium 3.8 (3.6-5.2) mmol/L Chloride 98 (98-107) mmol/L Carbon Dioxide 28 (22-30) mmol/L Anion Gap 15 (10-20) BUN 18 (9-20) mg/dL Creatinine 1.0 (0.8-1.5) mg/dL Est GFR ( Amer) > 60 Est GFR (Non-Af Amer) > 60 Random Glucose 100 (75-110) mg/dL Calcium 9.5 (8.6-10.4) mg/dl Total Bilirubin 1.5 H (0.2-1.3) mg/dL AST 45 (17-59) U/L ALT 36 (21-72) U/L Alkaline Phosphatase 38 (38-126) U/L Total Protein 7.6 (6.3-8.3) g/dL Albumin 3.8 (3.5-5.0) g/dL Globulin 3.8 (2.2-3.9) gm/dL Albumin/Globulin Ratio 1.0 (1.0-2.1) Laboratory Results - last 24 hr 04/08/17 04/08/17 06:36 06:36 WBC 7.4 RBC 4.22 L Hgb 13.1 Hct 38.0 MCV 90.1 MCH 31.2 H MCHC 34.6 RDW 13.8 Plt Count 261 MPV 8.8 Neut % (Auto) 64.3 Lymph % (Auto) 25.6 Rock % (Auto) 8.8 Eos % (Auto) 0.5 Baso % (Auto) 0.8 Neut # 4.8 Lymph # 1.9 Rock # 0.7 Eos # 0.0 Baso # 0.1 Sodium 138 Potassium 3.8 Chloride 98 Carbon Dioxide 28 Anion Gap 15 BUN 18 Creatinine 1.0 Est GFR ( Amer) > 60 Est GFR (Non-Af Amer) > 60 Random Glucose 100 Calcium 9.5 Total Bilirubin 1.5 H AST 45 ALT 36 Alkaline Phosphatase 38 Total Protein 7.6 Albumin 3.8 Globulin 3.8 Albumin/Globulin Ratio 1.0 Critical Care Progress Note - Nutrition Nutrition: Nutrition Category Date Time Status NPO Diet [DIET] Diets 04/08/17 Dinner Active Attending/Attestation - Attestation I have personally seen and examined this patient.: Yes I have fully participated in the care of the patient.: Yes I have reviewed all pertinent clinical information: Yes Notes (Text): 04/08/17 18:52 Today: Saturday, April 08, 2017 The Patient was seen and examined at the bedside, Medical records reviewed, and management issues were discussed and formulated with the house staff. I have reviewed all the relevant clinical, laboratory, hemodynamic, radiographic data and medications Events reviewed Pain issues, skin care, head of the bed elevation, glycemic control were addressed. I concur with resident's assessment and plan of care as transcribed in Dr. Galdamez note.
[2017-04-08] MEDS: Enoxaparin 80 mg Syringe SC ONE ×2 (20:47→20:58)
--- NOTE | 2017-04-08 21:39 | CP.PCM.PN ---
Subjective - Date & Time of Evaluation Date of Evaluation: 04/08/17 Time of Evaluation: 11:15 - Subjective Subjective: Patient s/p Cath SVG to OM has 99% stenosis EF 30% For PCI tomorrow Objective - Vital Signs/Intake and Output Vital Signs (last 24 hours): Temp Pulse Resp BP Pulse Ox 99 F 63 12 166/80 H 100 04/08/17 16:00 04/08/17 19:04 04/08/17 19:04 04/08/17 21:16 04/08/17 19:04 Intake and Output: 04/08/17 04/09/17 18:59 06:59 Intake Total 1832 56 Output Total 1400 Balance 432 56 - Medications Medications: Current Medications Acetaminophen (Tylenol 325mg Tab) 650 mg PO Q6 PRN PRN Reason: Pain, Mild (1-3) Aspirin (Aspirin Chewable) 81 mg PO DAILY [facility] Last Admin: 04/08/17 10:56 Dose: 81 mg Carvedilol (Coreg) 12.5 mg PO Q12H [facility] Last Admin: 04/08/17 21:16 Dose: 12.5 mg Clopidogrel Bisulfate (Plavix) 75 mg PO DAILY [facility] Last Admin: 04/08/17 10:55 Dose: 75 mg Enalapril Maleate (Vasotec) 20 mg PO DAILY [facility] Last Admin: 04/08/17 10:57 Dose: 20 mg Enoxaparin Sodium (Lovenox) 70 mg SC Q12 [facility] Last Admin: 04/07/17 21:35 Dose: 70 mg Nitroglycerin/Dextrose (Nitroglycerin 50 Mg/250 Ml D5w) 50 mg in 250 mls @ 1.5 mls/hr IV .Q24H BESSIE; 5 MCG/MIN PRN Reason: Protocol Last Admin: 04/08/17 18:28 Dose: Not Given Morphine Sulfate (Morphine) 2 mg IVP Q4 PRN PRN Reason: Pain, moderate (4-7) Last Admin: 04/08/17 20:52 Dose: 2 mg Nitroglycerin (Nitro-Bid 2% Oint) 1 ea TOP Q12 PRN PRN Reason: chest pain Pantoprazole Sodium (Protonix Inj) 40 mg IVP DAILY [facility] Last Admin: 04/08/17 10:55 Dose: 40 mg Rosuvastatin Calcium (Crestor) 40 mg PO HS [facility] Last Admin: 04/08/17 21:03 Dose: 40 mg Zolpidem Tartrate (Ambien) 5 mg PO HS PRN PRN Reason: Insomnia Last Admin: 04/07/17 22:36 Dose: 5 mg - Labs Labs: 04/08/17 06:36 04/08/17 06:36 PT 13.2 SECONDS (9.7-12.2) H 04/06/17 10:09 INR 1.2 04/06/17 10:09 APTT 19 SECONDS (21-34) L 04/06/17 10:09
[2017-04-09 06:36] LABS: BASO % 0.5 % (0.0-2.0); LYMPH # 1.4 K/uL (1.0-4.3); LYMPH % 15.8 % (20.0-40.0); MEAN CELL VOLUME 90.4 fL (80.0-94.0); MEAN CORPUSCULAR HGB CONC 34.3 g/dL (33.0-37.0); MEAN PLATELET VOLUME 9.4 fL (7.2-11.7); MONO # 0.4 K/uL (0.0-0.8); MONO % 4.9 % (0.0-10.0); RED CELL DISTRIBUTION WIDTH 13.6 % (11.5-14.5); WHITE BLOOD COUNT 9.1 K/uL (4.8-10.8)
[2017-04-09 06:58] LABS: CHLORIDE 96 mmol/L (98-107)
[2017-04-09 07:00] LABS: POTASSIUM 4.1 mmol/L (3.6-5.2)
[2017-04-09 07:02] LABS: ALB/GLOB RATIO 1.1 (1.0-2.1); ALKALINE PHOSPHATASE 35 U/L (38-126); ALT/SGPT 30 U/L (21-72); AST/SGOT 39 U/L (17-59); BILIRUBIN,TOTAL 1.5 mg/dL (0.2-1.3); BLOOD UREA NITROGEN 18 mg/dL (9-20); CARBON DIOXIDE 23 mmol/L (22-30); GFR AFRICAN-AMERICAN > 60; GLUCOSE,RANDOM 135 mg/dL (75-110); TOTAL PROTEIN 7.6 g/dL (6.3-8.3)
[2017-04-09 07:03] LABS: CALCIUM 9.4 mg/dl (8.6-10.4); MAGNESIUM 1.7 mg/dL (1.6-2.3); PHOSPHOROUS 3.7 mg/dL (2.5-4.5)
[2017-04-09 07:21] LABS: SODIUM 133 mmol/L (132-148)
--- NOTE | 2017-04-09 09:19 | CP.PCM.PN ---
Subjective - Date & Time of Evaluation Date of Evaluation: 04/09/17 Time of Evaluation: 09:00 - Subjective Subjective: Patient was moved to [facility] for PCI earlier this morning. I did NOT see or exam the patient this morning. As mentioned previously he has a SVG to OM with 99% stenosis No acute events overnight. He did report brief episodes of chest pain. He was still on the Tridil ggt as of this morning. Objective - Vital Signs/Intake and Output Vital Signs (last 24 hours): Temp Pulse Resp BP Pulse Ox 98.0 F 65 8 L 142/79 97 04/09/17 08:00 04/09/17 07:45 04/09/17 07:45 04/09/17 07:45 04/09/17 06:00 Intake and Output: 04/09/17 04/09/17 06:59 18:59 Intake Total 292 Output Total 550 Balance -258 - Medications Medications: Current Medications Acetaminophen (Tylenol 325mg Tab) 650 mg PO Q6 PRN PRN Reason: Pain, Mild (1-3) Aspirin (Aspirin Chewable) 81 mg PO DAILY [facility] Last Admin: 04/09/17 07:06 Dose: 81 mg Carvedilol (Coreg) 12.5 mg PO Q12H [facility] Last Admin: 04/09/17 08:41 Dose: Not Given Clopidogrel Bisulfate (Plavix) 75 mg PO DAILY [facility] Last Admin: 04/09/17 07:09 Dose: 75 mg Enalapril Maleate (Vasotec) 20 mg PO DAILY [facility] Last Admin: 04/09/17 07:09 Dose: 20 mg Furosemide (Lasix) 20 mg IVP BID [facility] Nitroglycerin/Dextrose (Nitroglycerin 50 Mg/250 Ml D5w) 50 mg in 250 mls @ 1.5 mls/hr IV .Q24H [facility]; 5 MCG/MIN PRN Reason: Protocol Last Titration: 04/08/17 21:00 Dose: 40 mcg/min, 12 mls/hr Morphine Sulfate (Morphine) 2 mg IVP Q4 PRN PRN Reason: Pain, moderate (4-7) Last Admin: 04/09/17 00:44 Dose: 2 mg Nitroglycerin (Nitro-Bid 2% Oint) 1 ea TOP Q12 PRN PRN Reason: chest pain Pantoprazole Sodium (Protonix Inj) 40 mg IVP DAILY [facility] Last Admin: 04/08/17 10:55 Dose: 40 mg Rosuvastatin Calcium (Crestor) 40 mg PO HS [facility] Last Admin: 04/08/17 21:03 Dose: 40 mg Zolpidem Tartrate (Ambien) 5 mg PO HS PRN PRN Reason: Insomnia Last Admin: 04/08/17 22:21 Dose: 5 mg - Labs Labs: 04/09/17 06:33 04/09/17 06:28 PT 13.2 SECONDS (9.7-12.2) H 04/06/17 10:09 INR 1.2 04/06/17 10:09 APTT 19 SECONDS (21-34) L 04/06/17 10:09 Assessment and Plan - Assessment and Plan (Free Text) Assessment: NSTEMI 04/09: At [facility] today. 04/08: Status post cardiac cath today and will need to go to [facility] tommorow for steninting to be done. Currently chest pain free and not short of breath when I saw him 04/07: The troponins lex to 4.2 and then decreased overnight. He remains on tridil ggt at this moment. He is pending cardiac cath tommorrow. His pertient history includes CABG x 2 vessel, pacer, history of HTN EKG - no changes from prior EKG Troponin - elevated 1.1600, repeat 4.1700, f/u third trop CXR 04/06/17- Mild central vascular congestion. Left-sided pacemaker. Borderline cardiomegaly. Aspirin 81mg PO daily Carvedilol 6.25mg PO Q12H Plavix 75mg PO daily Enalapril Maleate 20mg PO daily Lovenox 70mg SC Q12H Morphine 2mg IVP Q4H PRN Nitro Paste 1/2 inch Q12H PRN Crestor 40mg PO HS Aneurysm found on cardiac catherization. 04/09: I was informed this was found on the diagnostic cardiac catherization. Will need outpatient monitoring HTN Enalapril Maleate 20mg PO daily Carvedilol 6.25mg PO Q12H HLD Crestor 40mg PO HS Prophylactic Care DVT ppx - Lovenox 70mg SC Q12H GI ppx - Protonix 40mg IVP daily
--- NOTE | 2017-04-09 12:00 | CP.PCM.PN ---
Subjective - Date & Time of Evaluation Date of Evaluation: 04/09/17 Time of Evaluation: 11:59 - Subjective Subjective: Patient s/p SVG graft stent Stable Ambulate 1/2 NS 50cc /hr for 12 hours ASA, Plavix, statins and b blockers Objective - Vital Signs/Intake and Output Vital Signs (last 24 hours): Temp Pulse Resp BP Pulse Ox 98.0 F 65 8 L 142/79 97 04/09/17 08:00 04/09/17 07:45 04/09/17 07:45 04/09/17 07:45 04/09/17 06:00 Intake and Output: 04/09/17 04/09/17 06:59 18:59 Intake Total 292 Output Total 550 Balance -258 - Medications Medications: Current Medications Acetaminophen (Tylenol 325mg Tab) 650 mg PO Q6 PRN PRN Reason: Pain, Mild (1-3) Aspirin (Aspirin Chewable) 81 mg PO DAILY [facility] Last Admin: 04/09/17 10:23 Dose: Not Given Carvedilol (Coreg) 12.5 mg PO Q12H [facility] Last Admin: 04/09/17 08:41 Dose: Not Given Clopidogrel Bisulfate (Plavix) 75 mg PO DAILY [facility] Last Admin: 04/09/17 10:24 Dose: Not Given Enalapril Maleate (Vasotec) 20 mg PO DAILY [facility] Last Admin: 04/09/17 10:24 Dose: Not Given Enoxaparin Sodium (Lovenox) 30 mg SC DAILY [facility] Furosemide (Lasix) 20 mg IVP DAILY [facility] Morphine Sulfate (Morphine) 2 mg IVP Q4 PRN PRN Reason: Pain, moderate (4-7) Last Admin: 04/09/17 00:44 Dose: 2 mg Pantoprazole Sodium (Protonix Inj) 40 mg IVP DAILY [facility] Last Admin: 04/08/17 10:55 Dose: 40 mg Rosuvastatin Calcium (Crestor) 40 mg PO HS [facility] Last Admin: 04/08/17 21:03 Dose: 40 mg Zolpidem Tartrate (Ambien) 5 mg PO HS PRN PRN Reason: Insomnia Last Admin: 04/08/17 22:21 Dose: 5 mg - Labs Labs: 04/09/17 06:33 04/09/17 06:28 PT 13.2 SECONDS (9.7-12.2) H 04/06/17 10:09 INR 1.2 04/06/17 10:09 APTT 19 SECONDS (21-34) L 04/06/17 10:09
--- NOTE | 2017-04-09 12:30 | CP.CCUPN ---
<Mark Palomares - Last Filed: 04/09/17 17:22> CCU Objective - Vital Signs / Intake & Output Intake and Output (Last 8hrs): Intake & Output 04/09/17 04/09/17 04/09/17 06:59 14:59 22:59 Intake Total 96 Output Total 550 Balance -454 Weight 154 lb Intake: Intake, IV Amount 96 Left Wrist 96 Output: Urine 550 Urine, Voided 550 Other: # Voids Urine, Voided 1 - Medications Active Medications: Active Medications Generic Name Dose Route Start Last Admin Trade Name Freq PRN Reason Stop Dose Admin Acetaminophen 650 mg 04/08/17 09:49 Tylenol 325mg Tab PO Q6 PRN Pain, Mild (1-3) Aspirin 81 mg 04/07/17 10:00 04/09/17 10:23 Aspirin Chewable PO Not Given DAILY [facility] Carvedilol 12.5 mg 04/08/17 20:30 04/09/17 08:41 Coreg PO Not Given Q12H [facility] Clopidogrel Bisulfate 75 mg 04/07/17 10:00 04/09/17 10:24 Plavix PO Not Given DAILY [facility] Enalapril Maleate 20 mg 04/07/17 10:00 04/09/17 10:24 Vasotec PO Not Given DAILY [facility] Enoxaparin Sodium 30 mg 04/10/17 10:00 Lovenox SC DAILY [facility] Furosemide 20 mg 04/10/17 10:00 Lasix IVP DAILY [facility] Morphine Sulfate 2 mg 04/06/17 14:52 04/09/17 00:44 Morphine IVP 2 mg Q4 PRN Administration Pain, moderate (4-7) Pantoprazole Sodium 40 mg 04/07/17 10:00 04/08/17 10:55 Protonix Inj IVP 40 mg DAILY [facility] Administration Rosuvastatin Calcium 40 mg 04/06/17 22:00 04/08/17 21:03 Crestor PO 40 mg HS [facility] Administration Zolpidem Tartrate 5 mg 04/06/17 22:24 04/08/17 22:21 Ambien PO 5 mg HS PRN Administration Insomnia - Patient Studies Lab Studies: Lab Studies 04/09/17 04/09/17 Range/Units 06:33 06:28 WBC 9.1 (4.8-10.8) K/uL RBC 4.09 L (4.40-5.90) Mil/uL Hgb 12.7 (12.0-18.0) g/dL Hct 37.0 (35.0-51.0) % MCV 90.4 (80.0-94.0) fL MCH 31.0 (27.0-31.0) pg MCHC 34.3 (33.0-37.0) g/dL RDW 13.6 (11.5-14.5) % Plt Count 243 (130-400) K/uL MPV 9.4 (7.2-11.7) fL Neut % (Auto) 78.8 H (50.0-75.0) % Lymph % (Auto) 15.8 L (20.0-40.0) % Lane % (Auto) 4.9 (0.0-10.0) % Eos % (Auto) 0.0 (0.0-4.0) % Baso % (Auto) 0.5 (0.0-2.0) % Neut # 7.2 H (1.8-7.0) K/uL Lymph # 1.4 (1.0-4.3) K/uL Lane # 0.4 (0.0-0.8) K/uL Eos # 0.0 (0.0-0.7) K/uL Baso # 0.0 (0.0-0.2) K/uL Sodium 133 (132-148) mmol/L Potassium 4.1 (3.6-5.2) mmol/L Chloride 96 L (98-107) mmol/L Carbon Dioxide 23 (22-30) mmol/L Anion Gap 18 (10-20) BUN 18 (9-20) mg/dL Creatinine 0.9 (0.8-1.5) mg/dL Est GFR ( Amer) > 60 Est GFR (Non-Af Amer) > 60 Random Glucose 135 H (75-110) mg/dL Calcium 9.4 (8.6-10.4) mg/dl Phosphorus 3.7 (2.5-4.5) mg/dL Magnesium 1.7 (1.6-2.3) mg/dL Total Bilirubin 1.5 H (0.2-1.3) mg/dL AST 39 (17-59) U/L ALT 30 (21-72) U/L Alkaline Phosphatase 35 L (38-126) U/L Total Protein 7.6 (6.3-8.3) g/dL Albumin 3.9 (3.5-5.0) g/dL Globulin 3.7 (2.2-3.9) gm/dL Albumin/Globulin Ratio 1.1 (1.0-2.1) Laboratory Results - last 24 hr 04/09/17 04/09/17 06:28 06:33 WBC 9.1 RBC 4.09 L Hgb 12.7 Hct 37.0 MCV 90.4 MCH 31.0 MCHC 34.3 RDW 13.6 Plt Count 243 MPV 9.4 Neut % (Auto) 78.8 H Lymph % (Auto) 15.[address] % (Auto) 4.9 Eos % (Auto) 0.0 Baso % (Auto) 0.5 Neut # 7.2 H Lymph # 1.4 Lane # 0.4 Eos # 0.0 Baso # 0.0 Sodium 133 Potassium 4.1 Chloride 96 L Carbon Dioxide 23 Anion Gap 18 BUN 18 Creatinine 0.9 Est GFR ( Amer) > 60 Est GFR (Non-Af Amer) > 60 Random Glucose 135 H Calcium 9.4 Phosphorus 3.7 Magnesium 1.7 Total Bilirubin 1.5 H AST 39 ALT 30 Alkaline Phosphatase 35 L Total Protein 7.6 Albumin 3.9 Globulin 3.7 Albumin/Globulin Ratio 1.1 Critical Care Progress Note - Nutrition Nutrition: Nutrition Category Date Time Status Heart Healthy Diet [DIET] Diets 04/09/17 Lunch Active Attending/Attestation - Attestation I have personally seen and examined this patient.: Yes I have fully participated in the care of the patient.: Yes I have reviewed all pertinent clinical information: Yes Notes (Text): 04/09/17 17:22 I have seen and examined the patient. Medical records, lab studies, and imaging were reviewed by me and a management plan was formulated on multidisciplinary rounds with resident Dr. Galdamez. I agree with their above documented assessment and plan. Patient went for cardiac cath today. Critical Care Time 35 minutes. Multi-disciplinary rounds were performed with house staff, nursing, speech therapy, respiratory therapy, pharmacy and nutrition with integrated input from the primary team/attending and other consulting services. The documented time is cumulative and includes review of patient data/exams/labs/chart review and examination of the patient on rounds and throughout the day; time is exclusive of any procedures or teaching time. 04/09/17 17:23 <Maxine Galdamez E - Last Filed: 04/09/17 19:04> CCU Subjective - Physician Review Subjective (Free Text): Patient was seen and examined at bedside. Patient reports that he is doing well. Patient denies nausea, vomiting, SOB, headache, dizziness, visual changes but admits to mild diaphoresis. Patient is ambulating and tolerating diet. Patient is aware that he is going to [facility] [place] [facility] for PCI. CCU Objective - Vital Signs / Intake & Output Intake and Output (Last 8hrs): Intake & Output 04/08/17 04/09/17 04/09/17 22:59 06:59 14:59 Intake Total 1220 96 Output Total 1000 550 Balance 220 -454 Weight 154 lb Intake: IV 57 Intake, IV Amount 363 96 Left Proximal Port Wrist 300 Left Wrist 63 96 Oral 800 Output: Urine 1000 550 Urine, Voided 1000 550 Other: # Voids Urine, Voided 1 - Physical Exam Head: Positive for: Atraumatic, Normocephalic Extroacular Muscles: Positive for: EOMI Respiratory/Chest: Positive for: Clear to Auscultation, Decreased Breath Sounds (Bilateral lower bases) Cardiovascular: Positive for: Regular Rate and Rhythm, Normal S1, S2 Abdomen: Positive for: Normal Bowel Sounds. Negative for: Tenderness, Distention Upper Extremity: Positive for: Normal Inspection Lower Extremity: Positive for: Normal Inspection, Other (Right femoral area tender s/p cardiac catherization. No sign of hematoma ) Neurological: Positive for: GCS=15, Speech Normal Skin: Positive for: Warm, Normal Color Psychiatric: Positive for: Alert, Oriented x 3 - Medications Active Medications: Active Medications Generic Name Dose Route Start Last Admin Trade Name Freq PRN Reason Stop Dose Admin Acetaminophen 650 mg 04/08/17 09:49 Tylenol 325mg Tab PO Q6 PRN Pain, Mild (1-3) Aspirin 81 mg 04/07/17 10:00 04/09/17 10:23 Aspirin Chewable PO Not Given DAILY [facility] Carvedilol 12.5 mg 04/08/17 20:30 04/09/17 08:41 Coreg PO Not Given Q12H [facility] Clopidogrel Bisulfate 75 mg 04/07/17 10:00 04/09/17 10:24 Plavix PO Not Given DAILY [facility] Enalapril Maleate 20 mg 04/07/17 10:00 04/09/17 10:24 Vasotec PO Not Given DAILY [facility] Enoxaparin Sodium 30 mg 04/10/17 10:00 Lovenox SC DAILY [facility] Furosemide 20 mg 04/10/17 10:00 Lasix IVP DAILY [facility] Morphine Sulfate 2 mg 04/06/17 14:52 04/09/17 00:44 Morphine IVP 2 mg Q4 PRN Administration Pain, moderate (4-7) Pantoprazole Sodium 40 mg 04/07/17 10:00 04/08/17 10:55 Protonix Inj IVP 40 mg DAILY [facility] Administration Rosuvastatin Calcium 40 mg 04/06/17 22:00 04/08/17 21:03 Crestor PO 40 mg HS [facility] Administration Zolpidem Tartrate 5 mg 04/06/17 22:24 04/08/17 22:21 Ambien PO 5 mg HS PRN Administration Insomnia - Patient Studies Lab Studies: Microbiology Studies 04/06/17 19:37 MRSA Culture (Admit) - Final Naris MRSA NOT DETECTED Lab Studies 04/09/17 04/09/17 Range/Units 06:33 06:28 WBC 9.1 (4.8-10.8) K/uL RBC 4.09 L (4.40-5.90) Mil/uL Hgb 12.7 (12.0-18.0) g/dL Hct 37.0 (35.0-51.0) % MCV 90.4 (80.0-94.0) fL MCH 31.0 (27.0-31.0) pg MCHC 34.3 (33.0-37.0) g/dL RDW 13.6 (11.5-14.5) % Plt Count 243 (130-400) K/uL MPV 9.4 (7.2-11.7) fL Neut % (Auto) 78.8 H (50.0-75.0) % Lymph % (Auto) 15.8 L (20.0-40.0) % Lane % (Auto) 4.9 (0.0-10.0) % Eos % (Auto) 0.0 (0.0-4.0) % Baso % (Auto) 0.5 (0.0-2.0) % Neut # 7.2 H (1.8-7.0) K/uL Lymph # 1.4 (1.0-4.3) K/uL Lane # 0.4 (0.0-0.8) K/uL Eos # 0.0 (0.0-0.7) K/uL Baso # 0.0 (0.0-0.2) K/uL Sodium 133 (132-148) mmol/L Potassium 4.1 (3.6-5.2) mmol/L Chloride 96 L (98-107) mmol/L Carbon Dioxide 23 (22-30) mmol/L Anion Gap 18 (10-20) BUN 18 (9-20) mg/dL Creatinine 0.9 (0.8-1.5) mg/dL Est GFR ( Amer) > 60 Est GFR (Non-Af Amer) > 60 Random Glucose 135 H (75-110) mg/dL Calcium 9.4 (8.6-10.4) mg/dl Phosphorus 3.7 (2.5-4.5) mg/dL Magnesium 1.7 (1.6-2.3) mg/dL Total Bilirubin 1.5 H (0.2-1.3) mg/dL AST 39 (17-59) U/L ALT 30 (21-72) U/L Alkaline Phosphatase 35 L (38-126) U/L Total Protein 7.6 (6.3-8.3) g/dL Albumin 3.9 (3.5-5.0) g/dL Globulin 3.7 (2.2-3.9) gm/dL Albumin/Globulin Ratio 1.1 (1.0-2.1) Laboratory Results - last 24 hr 04/09/17 04/09/17 06:28 06:33 WBC 9.1 RBC 4.09 L Hgb 12.7 Hct 37.0 MCV 90.4 MCH 31.0 MCHC 34.3 RDW 13.6 Plt Count 243 MPV 9.4 Neut % (Auto) 78.8 H Lymph % (Auto) 15.[address] % (Auto) 4.9 Eos % (Auto) 0.0 Baso % (Auto) 0.5 Neut # 7.2 H Lymph # 1.4 Lane # 0.4 Eos # 0.0 Baso # 0.0 Sodium 133 Potassium 4.1 Chloride 96 L Carbon Dioxide 23 Anion Gap 18 BUN 18 Creatinine 0.9 Est GFR ( Amer) > 60 Est GFR (Non-Af Amer) > 60 Random Glucose 135 H Calcium 9.4 Phosphorus 3.7 Magnesium 1.7 Total Bilirubin 1.5 H AST 39 ALT 30 Alkaline Phosphatase 35 L Total Protein 7.6 Albumin 3.9 Globulin 3.7 Albumin/Globulin Ratio 1.1 Review of Systems - Constitutional Constitutional: absent: Fever, Chills, Sweats, Weakness - EENT Eyes: absent: Change in Vision Ears: absent: Dizziness - Cardiovascular Cardiovascular: absent: Chest Pain, Diaphoresis, Dyspnea, Lightheadedness, Palpitations - Respiratory Respiratory: absent: Dyspnea - Gastrointestinal Gastrointestinal: absent: Abdominal Pain, Nausea, Vomiting - Musculoskeletal Musculoskeletal: absent: Tingling - Neurological Neurological: absent: Dizziness, Tingling, Weakness - Endocrine Endocrine: absent: Fatigue, Palpitations Critical Care Progress Note - Nutrition Nutrition: Nutrition Category Date Time Status Heart Healthy Diet [DIET] Diets 04/09/17 Lunch Active Assessment/Plan - Assessment and Plan (Free Text) Assessment: 61 year old male with past medical history PMHx of CABG (2008), asthma, HTN, HLD and insomnia who presents with complaints of left-sided chest pain with elevated troponins (1.1600, 4.1700, 4.000, 2.200) S/P cardiac catherization POD #1: 100% occlusion in the SVG graft stent Today: Plans for PCI of the SVG graft * As per client support associate, Patient can be transferred to telemetry tomorrow Plan: Neuro: Alert, awake and oriented Cardio: NSTEMI with elevated Tropnins, Hx of CAD, HTN AND HLD Cardiology Consult: Dr. Rucker on board--> Help appreciated * S/P cardiac catherization POD #1: 100% occlusion in the SVG graft stent * S/P Plans for PCI of the SVG graft POD#0 * Echocardiogram: Left ventricle is severely dilated, EF: 30-35%, global hypokinesis of the left ventricle Medications: * Aspirin 81mg PO daily * Coreg 6.25mg PO Q12H * Plavix 300mg PO daily * Nitroglycerin 1 ea top q12 prn * Crestor 40mg PO HS * Vasotec 20mg PO daily * Lasiz 20mg IVP daily * Morphine 2mg IV Q4 prn for pain control Renal: Cardiac Catherization (04/08/17): Infrarenal AAA noted as per verbal report from the cardiology team, patient advised to follow up with a CT scan Prophylaxis: DVT: Lovenox 70mg SC q12h GI: Protonix 40mg PO daily Tylenol 650mg PO Q6 PRN
--- NOTE | 2017-04-09 15:41 | CARD ---
APPROVED REPORT EKG Measurement Heart [id number] <Conclusion> Atrial-sensed ventricular-paced rhythm Abnormal ECG
--- NOTE | 2017-04-09 16:34 | CP.PCM.PN ---
Subjective - Date & Time of Evaluation Date of Evaluation: 04/09/17 Time of Evaluation: 11:00 - Subjective Subjective: Vascular Surgery Dr. Lane Pt off unit. Pt transferred to [place] for PCI. Pt to return to [facility] s/p cardiac cath. Objective - Vital Signs/Intake and Output Vital Signs (last 24 hours): Temp Pulse Resp BP Pulse Ox 98.0 F 65 8 L 142/79 97 04/09/17 08:00 04/09/17 07:45 04/09/17 07:45 04/09/17 07:45 04/09/17 06:00 Intake and Output: 04/09/17 04/09/17 06:59 18:59 Intake Total 292 Output Total 550 Balance -258 - Medications Medications: Current Medications Acetaminophen (Tylenol 325mg Tab) 650 mg PO Q6 PRN PRN Reason: Pain, Mild (1-3) Aspirin (Aspirin Chewable) 81 mg PO DAILY [facility] Last Admin: 04/09/17 10:23 Dose: Not Given Carvedilol (Coreg) 12.5 mg PO Q12H [facility] Last Admin: 04/09/17 08:41 Dose: Not Given Clopidogrel Bisulfate (Plavix) 75 mg PO DAILY [facility] Last Admin: 04/09/17 10:24 Dose: Not Given Enalapril Maleate (Vasotec) 20 mg PO DAILY [facility] Last Admin: 04/09/17 10:24 Dose: Not Given Enoxaparin Sodium (Lovenox) 30 mg SC DAILY [facility] Furosemide (Lasix) 20 mg IVP DAILY [facility] Morphine Sulfate (Morphine) 2 mg IVP Q4 PRN PRN Reason: Pain, moderate (4-7) Last Admin: 04/09/17 00:44 Dose: 2 mg Pantoprazole Sodium (Protonix Inj) 40 mg IVP DAILY [facility] Last Admin: 04/08/17 10:55 Dose: 40 mg Rosuvastatin Calcium (Crestor) 40 mg PO HS [facility] Last Admin: 04/08/17 21:03 Dose: 40 mg Zolpidem Tartrate (Ambien) 5 mg PO HS PRN PRN Reason: Insomnia Last Admin: 04/08/17 22:21 Dose: 5 mg - Labs Labs: 04/09/17 06:33 04/09/17 06:28 PT 13.2 SECONDS (9.7-12.2) H 04/06/17 10:09 INR 1.2 04/06/17 10:09 APTT 19 SECONDS (21-34) L 04/06/17 10:09 Assessment and Plan - Assessment and Plan (Free Text) Assessment: 61 y/o M CAD and AAA ~3.5cm - no surgical intervention at this time - monitor as outpatient w/ repeat CTA Q6-12months - please re-consult if needed Pt discussed w/ Dr. Domingo Dozier DO PGY2
[2017-04-10 06:25] LABS: BASO # 0.1 K/uL (0.0-0.2); BASO % 0.9 % (0.0-2.0); EOS % 0.6 % (0.0-4.0); HEMATOCRIT 36.3 % (35.0-51.0); LYMPH % 27.5 % (20.0-40.0); MEAN CELL VOLUME 89.7 fL (80.0-94.0); MEAN CORPUSCULAR HEMOGLOBIN 31.4 pg (27.0-31.0); MEAN PLATELET VOLUME 8.6 fL (7.2-11.7); MONO # 0.8 K/uL (0.0-0.8); MONO % 10.6 % (0.0-10.0); NRBC % 0.1 % (0.0-2.0); RED CELL DISTRIBUTION WIDTH 13.3 % (11.5-14.5); WHITE BLOOD COUNT 7.3 K/uL (4.8-10.8)
[2017-04-10 06:34] LABS: CHLORIDE 99 mmol/L (98-107)
[2017-04-10 06:35] LABS: SODIUM 137 mmol/L (132-148)
[2017-04-10 06:37] LABS: BILIRUBIN,TOTAL 1.2 mg/dL (0.2-1.3); CARBON DIOXIDE 26 mmol/L (22-30); GFR AFRICAN-AMERICAN > 60
[2017-04-10 06:38] LABS: ALKALINE PHOSPHATASE 33 U/L (38-126); ALT/SGPT 40 U/L (21-72); AST/SGOT 45 U/L (17-59); BLOOD UREA NITROGEN 18 mg/dL (9-20); CALCIUM 9.5 mg/dl (8.6-10.4); GLUCOSE,RANDOM 90 mg/dL (75-110); TOTAL PROTEIN 7.3 g/dL (6.3-8.3)
[2017-04-10 06:54] VITALS: RESP 18
--- NOTE | 2017-04-10 09:44 | CP.PCM.PN ---
Subjective - Date & Time of Evaluation Date of Evaluation: 04/10/17 Time of Evaluation: 09:15 - Subjective Subjective: Patient was seen and examined by me He S/P two stents placed at [facility] Currently now returned. He feels well. No acute changes overnight. Patient denied chest pain, denied shortness of breath. Tolerated diet well. He denied pain at the femoral or wrist areas - no bleeding. Objective - Vital Signs/Intake and Output Vital Signs (last 24 hours): Temp Pulse Resp BP Pulse Ox 98.1 F 60 18 132/65 96 04/10/17 07:51 04/10/17 07:03 04/10/17 07:03 04/10/17 07:03 04/10/17 07:03 Intake and Output: 04/10/17 04/10/17 06:59 18:59 Intake Total 840 Output Total 950 Balance -110 - Medications Medications: Current Medications Acetaminophen (Tylenol 325mg Tab) 650 mg PO Q6 PRN PRN Reason: Pain, Mild (1-3) Aspirin (Aspirin Chewable) 81 mg PO DAILY [facility] Last Admin: 04/09/17 10:23 Dose: Not Given Carvedilol (Coreg) 12.5 mg PO Q12H [facility] Last Admin: 04/09/17 20:18 Dose: Not Given Clopidogrel Bisulfate (Plavix) 75 mg PO DAILY [facility] Last Admin: 04/09/17 10:24 Dose: Not Given Enalapril Maleate (Vasotec) 20 mg PO DAILY [facility] Last Admin: 04/09/17 10:24 Dose: Not Given Enoxaparin Sodium (Lovenox) 30 mg SC DAILY [facility] Furosemide (Lasix) 20 mg IVP DAILY [facility] Morphine Sulfate (Morphine) 2 mg IVP Q4 PRN PRN Reason: Pain, moderate (4-7) Last Admin: 04/09/17 00:44 Dose: 2 mg Pantoprazole Sodium (Protonix Inj) 40 mg IVP DAILY [facility] Last Admin: 04/09/17 11:00 Dose: Not Given Rosuvastatin Calcium (Crestor) 40 mg PO HS [facility] Last Admin: 04/09/17 22:21 Dose: 40 mg Zolpidem Tartrate (Ambien) 5 mg PO HS PRN PRN Reason: Insomnia Last Admin: 04/09/17 22:21 Dose: 5 mg - Labs Labs: 04/10/17 06:17 04/10/17 06:17 PT 13.2 SECONDS (9.7-12.2) H 04/06/17 10: INR 1.2 04/06/17 10: APTT 19 SECONDS (21-34) L 04/06/17 10:09 - Constitutional Appears: Well, Non-toxic, No Acute Distress - Eye Exam Eye Exam: EOMI, Normal appearance - ENT Exam ENT Exam: Mucous Membranes Moist - Respiratory Exam Respiratory Exam: Clear to Ausculation Bilateral, Wheezes - Cardiovascular Exam Cardiovascular Exam: REGULAR RHYTHM - GI/Abdominal Exam GI & Abdominal Exam: Soft, Normal Bowel Sounds. absent: Tenderness - Neurological Exam Neurological Exam: Alert, Awake, Normal Gait, Oriented x3 Neuro motor strength exam: Left Upper Extremity: 5, Right Upper Extremity: 5, Left Lower Extremity: 5, Right Lower Extremity: 5 - Psychiatric Exam Psychiatric exam: Normal Affect, Normal Mood - Skin Skin Exam: Normal Color, Warm Assessment and Plan - Assessment and Plan (Free Text) Assessment: NSTEMI, stenting to the SVG 04/10: Returned to [facility]. Doing well, moving to telemetry today. 04/09: At [facility] today. 04/08: Status post cardiac cath today and will need to go to [facility] tommorow for steninting to be done. Currently chest pain free and not short of breath when I saw him 04/07: The troponins lex to 4.2 and then decreased overnight. He remains on tridil ggt at this moment. He is pending cardiac cath tommorrow. His pertient history includes CABG x 2 vessel, pacer, history of HTN EKG - no changes from prior EKG Troponin - elevated 1.1600, repeat 4.1700, f/u third trop CXR 04/06/17- Mild central vascular congestion. Left-sided pacemaker. Borderline cardiomegaly. Aspirin 81mg PO daily Carvedilol 6.25mg PO Q12H Plavix 75mg PO daily Enalapril Maleate 20mg PO daily Lovenox 70mg SC Q12H Morphine 2mg IVP Q4H PRN Nitro Paste 1/2 inch Q12H PRN Crestor 40mg PO HS Aneurysm found on cardiac catherization. 04/09: I was informed this was found on the diagnostic cardiac catherization. Will need outpatient monitoring HTN 04/10: systolics in the 120s to 130s. Enalapril Maleate 20mg PO daily Carvedilol 6.25mg PO Q12H HLD Crestor 40mg PO HS Prophylactic Care DVT ppx - Lovenox 70mg SC Q12H GI ppx - Protonix 40mg IVP daily
[2017-04-10] MEDS ORDERED: Enoxaparin 30 mg Syringe SC SCH (10:00)
--- NOTE | 2017-04-10 11:27 | CP.PCM.DIS ---
Provider - Provider Date of Admission: 04/06/17 12:05 Attending physician: Bob Navarrete DO Consults: Dr Rucker ~ Cardiology Time Spent in preparation of Discharge (in minutes): 29 Hospital Course - Lab Results Lab Results: Micro Results 04/06/17 19:37 Naris MRSA Culture (Admit) - Final MRSA NOT DETECTED Most Recent Lab Values WBC 7.3 K/uL (4.8-10.8) 04/10/17 06:17 RBC 4.05 Mil/uL (4.40-5.90) L 04/10/17 06:17 Hgb 12.7 g/dL (12.0-18.0) 04/10/17 06:17 Hct 36.3 % (35.0-51.0) 04/10/17 06:17 MCV 89.7 fL (80.0-94.0) 04/10/17 06:17 MCH 31.4 pg (27.0-31.0) H 04/10/17 06:17 MCHC 35.0 g/dL (33.0-37.0) 04/10/17 06:17 RDW 13.3 % (11.5-14.5) 04/10/17 06:17 Plt Count 232 K/uL (130-400) 04/10/17 06:17 MPV 8.6 fL (7.2-11.7) 04/10/17 06:17 Neut % (Auto) 60.4 % (50.0-75.0) 04/10/17 06:17 Lymph % (Auto) 27.5 % (20.0-40.0) 04/10/17 06:17 Day % (Auto) 10.6 % (0.0-10.0) H 04/10/17 06:17 Eos % (Auto) 0.6 % (0.0-4.0) 04/10/17 06:17 Baso % (Auto) 0.9 % (0.0-2.0) 04/10/17 06:17 Neut # 4.4 K/uL (1.8-7.0) 04/10/17 06:17 Lymph # 2.0 K/uL (1.0-4.3) 04/10/17 06:17 Day # 0.8 K/uL (0.0-0.8) 04/10/17 06:17 Eos # 0.0 K/uL (0.0-0.7) 04/10/17 06:17 Baso # 0.1 K/uL (0.0-0.2) 04/10/17 06:17 Neutrophils % (Manual) 87 % (50-75) H 04/06/17 10:09 Band Neutrophils % 1 % (0-2) 04/06/17 10:09 Lymphocytes % (Manual) 7 % (20-40) L 04/06/17 10:09 Monocytes % (Manual) 4 % (0-10) 04/06/17 10:09 Basophils % (Manual) 1 % (0-2) 04/06/17 10:09 Platelet Estimate Normal (NORMAL) 04/06/17 10:09 Ovalocytes Slight 04/06/17 10:09 PT 13.2 SECONDS (9.7-12.2) H 04/06/17 10:09 INR 1.2 04/06/17 10:09 APTT 19 SECONDS (21-34) L 04/06/17 10:09 Sodium 137 mmol/L (132-148) 04/10/17 06:17 Potassium 4.0 mmol/L (3.6-5.2) 04/10/17 06:17 Chloride 99 mmol/L (98-107) 04/10/17 06:17 Carbon Dioxide 26 mmol/L (22-30) 04/10/17 06:17 Anion Gap 15 (10-20) 04/10/17 06:17 BUN 18 mg/dL (9-20) 04/10/17 06:17 Creatinine 0.9 mg/dL (0.8-1.5) 04/10/17 06:17 Est GFR ( Amer) > 60 04/10/17 06:17 Est GFR (Non-Af Amer) > 60 04/10/17 06:17 Random Glucose 90 mg/dL (75-110) 04/10/17 06:17 Calcium 9.5 mg/dl (8.6-10.4) 04/10/17 06:17 Phosphorus 3.7 mg/dL (2.5-4.5) 04/09/17:28 Magnesium 1.7 mg/dL (1.6-2.3) 04/09/17 06:28 Total Bilirubin 1.2 mg/dL (0.2-1.3) 04/10/17 06:17 AST 45 U/L (17-59) 04/10/17 06:17 ALT 40 U/L (21-72) 04/10/17 06:17 Alkaline Phosphatase 33 U/L (38-126) L 04/10/17 06:17 Total Creatine Kinase 185 U/L (55-170) H 04/06/17 22:25 CK-MB (Mass) 9.02 ng/mL (0.0-3.38) H 04/06/17 22:25 Troponin I 2.2200 ng/mL (0.00-0.120) H* 04/07/17 06:39 Troponin I, Quant 4.0000 ng/mL (0.00-0.120) H* 04/06/17 22:25 NT-Pro-B Natriuret Pep 8170 pg/mL (0-900) H 04/06/17 10:09 Total Protein 7.3 g/dL (6.3-8.3) 04/10/17 06:17 Albumin 3.6 g/dL (3.5-5.0) 04/10/17 06:17 Globulin 3.7 gm/dL (2.2-3.9) 04/10/17 06:17 Albumin/Globulin Ratio 1.0 (1.0-2.1) 04/10/17 06:17 - Hospital Course Hospital Course: Please note, the patient is leaving AMA on 04/10 @ 11:23 He was made very very aware of the fact that he is taking a risk. We emphasized to the patient he needs to take all his medication especially Plavix. We also gave him the [employer] ID card for him to take As mentioned previously the patient came on 04/06 with chest pain and developed positve troponins with the highest being 4.5. He required being placed in the ICU with a nitroglycerin ggt. The patient has a history of CAD as well as a history of 2 vessel CABG. He had a diagnostic catherization done at [facility] and ultimately required going to [facility] [place] for two stents to be placed due to his SVG to OM being 99 % stenosis. He had an EF of 30% He was also discovered to have an anuersym on the cardiac cath as well and he will need follow up outpatient. He was still in the ICU on 04/10 after returning from stenting when he decided he wanted to leave AMA. We had oil distributor tender to explain to the patient the risk. He decided to sign out AMA. thank you Bob Navarrete Discharge Exam - Head Exam Head Exam: NORMAL INSPECTION, NORMOCEPHALIC Discharge Plan - Follow Up Plan Condition: FAIR Disposition: AGAINST MEDICAL ADVICE Instructions: Myocardial Infarction (DC), Coronary Artery Disease (DC), Chest Pain (DC), Heart Healthy Diet (DC) Attending/Attestation - Attestation I have personally seen and examined this patient.: Yes I have fully participated in the care of the patient.: Yes I have reviewed all pertinent clinical information, including history, physical exam and plan: Yes
[2017-04-10 11:50] VITALS: BP 146/78; PULSE 77; TEMP 97.7; O2SAT 100
--- NOTE | 2017-04-12 06:45 | CARD ---
APPROVED REPORT EKG Measurement Heart [id number] <Conclusion> Atrial-sensed ventricular-paced rhythm Abnormal ECG
--- NOTE | 2017-04-12 11:35 | CARDCATH ---
PROCEDURE DATE: 04/08/2017 PROCEDURES: 1. Left heart catheterization, coronary angiogram. 2. Saphenous vein graft angiogram. 3. Left internal mammary artery graft angiogram. 4. Abdominal aortogram and bilateral peripheral lower extremity angiogram. 5. Radiological interpretation and supervision of the cardiac catheterization, abdominal aortogram and peripheral angiogram. REFERRING PHYSICIAN: Bob Navarrete DO PERFORMING PHYSICIAN: Coy Rucker MD CLINICAL INDICATIONS: 1. Chest pain. 2. Non-ST elevation myocardial infarction. 3. Systolic congestive heart failure. 4. Hyperlipidemia. 5. Coronary artery disease and history of CABG x2. 6. Peripheral artery disease. 7. Abdominal aortic aneurysm. PROCEDURE: After informed consent, the patient was prepped and draped in the usual sterile fashion. A 2% lidocaine was given in the right groin for local anesthesia. Using micropuncture technique, a 6-Somali sheath was introduced into right common femoral artery. JL4 6-Somali diagnostic catheter was engaged into left main coronary artery and left coronary angiogram was performed. JR4 6-Somali diagnostic catheter was engaged into right coronary artery and right coronary angiogram was performed. CUBA catheter engaged into left internal mammary artery graft and CUBA graft angiogram was performed. A 6-Somali AR1 diagnostic catheter engaged into saphenous vein graft and saphenous vein graft angiogram was performed. Pigtail catheter crossed across aortic valve into left ventricle and the left ventricular angiogram was performed with manual injection. Pigtail then pullback into abdominal aorta, abdominal aortogram, and bilateral lower extremity peripheral angiogram was performed using power injector. The patient tolerated the procedure well. FINDINGS: 1. Distal left main coronary artery has 85% calcific stenosis. 2. Proximal LAD is patent. Mid LAD is 100% occluding. 3. Ostial left circumflex 99% calcific stenosis. 4. Right coronary artery is small, [id number] right coronary artery has a long 90% to 99% calcific lesions. 5. LV ejection fraction approximately 25%. Global hypokinesis. EDP is 24. No gradient across the aortic valve. 6. Left internal mammary artery graft to LAD is patent. 7. Saphenous vein graft to obtuse marginal 1 graft has a 99% mid stenosis. 8. The patient has an abdominal aortic aneurysm. CT angiography suggested to assist the . 9. Left common iliac artery has 90% stenosis. Left common femoral artery has a 80% to 85% calcific stenosis. Right superficial femoral artery has 100% occluded. CONCLUSION: 1. The patient has critical saphenous vein graft stenosis. 2. Reduced LV ejection fraction. Approximate EF is 25%. 3. The patient has abdominal aortic aneurysm and bilateral peripheral artery disease. RECOMMENDATIONS: 1. Recommend intervention of the saphenous vein graft. 2. Vascular consult for further assessment of abdominal aortic aneurysm and peripheral artery disease. Coy Rucker MD
== END 2017-04-10 11:30 | disposition left against medical advice (07) | DRG 121 ==
LOC: C.ER 09:24 → C.9E 12:05 → C.6T 17:32 → C.9E 18:22 → C.9I 18:38
PROVIDERS: ADMIT Hospitalist; ATTEND Hospitalist
PROC: B211YZZ Fluoroscopy of Multiple Coronary Arteries using Other Contrast (ICD-10-PCS; 2017-04-08)
PROC: B212YZZ Fluoroscopy of Single Coronary Artery Bypass Graft using Other Contrast (ICD-10-PCS; 2017-04-08)
PROC: B218YZZ Fluoroscopy of Left Internal Mammary Bypass Graft using Other Contrast (ICD-10-PCS; 2017-04-08)
PROC: B215YZZ Fluoroscopy of Left Heart using Other Contrast (ICD-10-PCS; 2017-04-08)
PROC: B41DYZZ Fluoroscopy of Aorta and Bilateral Lower Extremity Arteries using Other Contrast (ICD-10-PCS; 2017-04-08)
PROC: 4A023N7 Measurement of Cardiac Sampling and Pressure, Left Heart, Percutaneous Approach (ICD-10-PCS; principal; 2017-04-08 08:00)
DX: I21.4 Non-ST elevation (NSTEMI) myocardial infarction (principal); I11.0 Hypertensive heart disease with heart failure; Z95.1 Presence of aortocoronary bypass graft; I50.20 Unspecified systolic (congestive) heart failure; I25.10 Atherosclerotic heart disease of native coronary artery without angina pectoris; Z95.5 Presence of coronary angioplasty implant and graft; E78.00 Pure hypercholesterolemia, unspecified; Z95.0 Presence of cardiac pacemaker; J45.909 Unspecified asthma, uncomplicated; Z87.891 Personal history of nicotine dependence; I71.4 Abdominal aortic aneurysm, without rupture; I70.291 Other atherosclerosis of native arteries of extremities, right leg